=== PATIENT | female | born 1985 | race Caucasian/White ===

== ENCOUNTER → 2016-09-05 | Outpatient (CLI) | payer BC ==
--- NOTE | 2016-09-05 12:56 | REP ---
Clinical: Chest pain and abdominal pain. Comparison: 10/16/2014 . Technique: PA and lateral. Findings: The mediastinum and cardiac silhouette are normal. The lung lee are clear and without acute consolidation, effusion, or pneumothorax. The skeletal structures are intact and normal. Impression: 1. No acute cardiopulmonary process. Signed by Shad Floyd MD 09/05/2016 12:48 P
[2016-09-05 13:14] LABS: ALBUMIN 4.1 GM/DL (3.2-5.2); ALBUMIN/GLOBULIN RATIO 1.21 (1.00-1.93); ALKALINE PHOSPHATASE 46 U/L (45-117); ALT/SGPT 94 U/L (12-78); ANION GAP 7 MEQ/L (8-16); AST/SGOT 53 U/L (15-37); BILIRUBIN,TOTAL 1.4 MG/DL (0.2-1.0); BLOOD UREA NITROGEN 16 MG/DL (7-18); CALCIUM LEVEL 8.8 MG/DL (8.5-10.1); CARBON DIOXIDE LEVEL 32 MEQ/L (21-32); CHLORIDE LEVEL 102 MEQ/L (98-107); CHOLESTEROL LEVEL 226 MG/DL (<200); CREATININE FOR GFR 0.76 MG/DL (0.55-1.02); GLOMERULAR FILTRATION RATE > 60.0 (>60); GLUCOSE, FASTING 105 MG/DL (70-105); POTASSIUM SERUM 4.1 MEQ/L (3.5-5.1); SODIUM LEVEL 141 MEQ/L (136-145); TOTAL PROTEIN 7.5 GM/DL (6.4-8.2); TRIGLYCERIDES LEVEL 236 MG/DL (<150)
[2016-09-05 13:38] LABS: MEAN CORPUSCULAR HEMOGLOBIN 28.7 pg (27.0-33.0); MEAN CORPUSCULAR HGB CONC 33.8 g/dl (32.0-36.5); MEAN CORPUSCULAR VOLUME 84.9 fl (80.0-96.0); RED CELL DISTRIBUTION WIDTH 13.1 % (11.5-14.5); WHITE BLOOD COUNT 6.8 K/mm3 (4.0-10.0)
--- NOTE | 2016-09-05 22:22 | ECGEPIP ---
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
== END ==
LOC: M LAB 12:02
PROVIDERS: ATTEND Family Medicine
DX: R10.9 Unspecified abdominal pain (principal)

== ENCOUNTER → 2016-09-09 | Outpatient (CLI) | payer BC ==
[~2016-09-09] MED LIST: GASTROGRAFIN SOLUTION 30ML (Q9963) As Ordered ONE; ISOVUE-370 76% 100ML VIAL (Q9967) As Ordered ONE
--- NOTE | 2016-09-09 15:58 | REP ---
CT abdomen and pelvis without and with IV contrast. Bowel contrast is used on both phases of the study. There are no comparisons. Prior to IV contrast scanning is performed of the diaphragms to the iliac crests. After IV contrast scan is performed for diaphragms to the pubic symphysis. Rule there is sagittal coronal reformats. The visualized lung lee are unremarkable. The hepatic parenchyma is homogeneous. There is hepato steatosis. The gallbladder, pancreas and spleen are unremarkable. The adrenals, kidneys and abdominal aorta are unremarkable. There is no bowel distension or obstruction. There is no ascites. Pelvis: The appendix has a normal appearance. The uterus is unremarkable. There is a 3.2 cm left adnexal cyst. The right adnexa is unremarkable. The uterus is unremarkable. The bladder is incompletely distended and cannot be further assessed. There is a 4.3 cm soft tissue mass inferiorly in the pelvis posterior lateral to the bladder on the right anterolateral to the lower uterine segment on the right and adjacent to distal sigmoid colon loops. This is sharply circumscribed homogeneous. This could represent a myoma or fibroma arising from the mesentery, bladder, uterus or bowel. Neoplasm cannot be entirely discounted. In the absence of comparison studies documenting stability. Follow-up is recommended. PET CT scan can biopsy may ultimately be required. Impression: There is a 4.3 cm soft tissue mass in the pelvis on the right as described. There are no comparisons. Follow-up is recommended. PET CT scan and biopsy may ultimately be required as discussed in the body of the report. There is a 3.2 cm left adnexal cyst. Hepato steatosis. No ascites or adenopathy. Otherwise, negative CT of the abdomen and pelvis. Signed by Esa Arvizu MD 09/09/2016 03:49 P
== END ==
LOC: M RAD 12:51
PROVIDERS: ATTEND Family Medicine
DX: R10.9 Unspecified abdominal pain (principal); K76.0 Fatty (change of) liver, not elsewhere classified; N83.8 Other noninflammatory disorders of ovary, fallopian tube and broad ligament; R19.03 Right lower quadrant abdominal swelling, mass and lump
CPT/HCPCS: 74178; Q9963; Q9967

== ENCOUNTER → 2016-10-20 | Outpatient (CLI) | payer BC ==
--- NOTE | 2016-10-20 18:57 | REP ---
Clinical: Pelvic abnormality by CT. Technique: Transabdominal pelvic ultrasound followed by transvaginal examination for better evaluation of the endometrium and adnexa with color Doppler evaluation of the ovaries. Comparison: CT dated 09/09/2016. Findings: Retroflexed retroverted uterus measures 6.5 x 3.8 x 4.9 cm. The endometrial complex measures 15.4 mm thickness. No discrete uterine or endometrial abnormalities are appreciated. The bilateral ovaries are normal in appearance and vascularity without torsion. Right ovary measures 2.5 x 2.7 x 4.0 cm; RI equal 0.66. Left ovary measures 2.7 x 2.5 x 3.4 cm; RI equal 0.54. Suspected abnormality on recent CT likely represented normal bilateral adnexa. No pelvic fluid or adnexal mass lesion. Impression: Normal pelvic ultrasound. Signed by Shda Floyd MD 10/20/2016 06:49 P
== END ==
LOC: M RAD 17:46
PROVIDERS: ATTEND Obstetrics & Gynecology
DX: N85.4 Malposition of uterus (principal)

== ENCOUNTER 2017-02-18 06:11 | Emergency (ER) | payer OTHER, BC ==
[~2017-02-18] VITALS: Ht 160 cm; Wt 106.8 kg
[2017-02-18] MEDS ORDERED: PRAV40TA2 (06:22)
[2017-02-18] MEDS ORDERED: LEVO100T5 PO (06:22)
[2017-02-18] MEDS ORDERED: METO-346 PO (06:22)
[2017-02-18] MEDS ORDERED: FURO40TA2 (06:22)
[2017-02-18] MEDS ORDERED: VITA1CAP40 (06:22)
[2017-02-18] MEDS ORDERED: POTA1TAB21 (06:22)
[2017-02-18 07:58] VITALS: BP 146/92
[2017-02-18] MEDS ORDERED: IBUP80TA PO (08:01)
== END 2017-02-18 08:05 | disposition home or self-care (01) ==
LOC: M ED 06:11
DX: S93.402A Sprain of unspecified ligament of left ankle, initial encounter (principal); X50.9XXA Other and unspecified overexertion or strenuous movements or postures, initial encounter; Y92.59 Other trade areas as the place of occurrence of the external cause; Y93.01 Activity, walking, marching and hiking; Y99.0 Civilian activity done for income or pay; F17.210 Nicotine dependence, cigarettes, uncomplicated; I10 Essential (primary) hypertension; E78.00 Pure hypercholesterolemia, unspecified; E03.9 Hypothyroidism, unspecified; F33.9 Major depressive disorder, recurrent, unspecified; Z79.899 Other long term (current) drug therapy; Z98.890 Other specified postprocedural states

== ENCOUNTER → 2017-05-28 | Outpatient (CLI) | payer BC, OTHER ==
[~2017-05-28] MED LIST changes: +FURO40TA2; -GASTROGRAFIN SOLUTION 30ML (Q9963) As Ordered ONE; +IBUP80TA PO; -ISOVUE-370 76% 100ML VIAL (Q9967) As Ordered ONE; +LEVO100T5 PO; +METO-346 PO; +POTA1TAB21; +PRAV40TA2; +VITA1CAP40
[2017-05-28 14:09] LABS: LUTEINIZING HORMONE 7.1 mIU/mL; THYROID PEROXIDASE ANTIBODY < 28.0 U/ML (<60.0)
[2017-05-28 14:10] LABS: FOLLICLE STIMULATING HORMONE 6.8 mIU/mL
[2017-05-28 14:11] LABS: ALBUMIN 3.7 GM/DL (3.2-5.2); ALBUMIN/GLOBULIN RATIO 0.95 (1.00-1.93); ALKALINE PHOSPHATASE 53 U/L (45-117); ALT/SGPT 60 U/L (12-78); ANION GAP 6 MEQ/L (8-16); AST/SGOT 32 U/L (7-37); BLOOD UREA NITROGEN 16 MG/DL (7-18); CALCIUM LEVEL 8.7 MG/DL (8.5-10.1); CARBON DIOXIDE LEVEL 29 MEQ/L (21-32); CHLORIDE LEVEL 104 MEQ/L (98-107); CHOLESTEROL LEVEL 276 MG/DL (<200); CREATININE FOR GFR 0.67 MG/DL (0.55-1.02); FREE T4 1.03 NG/DL (0.76-1.46); GLOMERULAR FILTRATION RATE > 60.0 (>60); GLUCOSE, FASTING 100 MG/DL (70-105); SODIUM LEVEL 139 MEQ/L (136-145); TOTAL PROTEIN 7.6 GM/DL (6.4-8.2); TRIGLYCERIDES LEVEL 308 MG/DL (<150)
== END ==
LOC: M LAB 12:28
PROVIDERS: ATTEND Family Medicine
DX: E03.9 Hypothyroidism, unspecified (principal); E78.5 Hyperlipidemia, unspecified; L68.0 Hirsutism; E66.01 Morbid (severe) obesity due to excess calories

== ENCOUNTER → 2017-08-24 | Outpatient (CLI) | payer BC ==
[2017-08-24 13:36] LABS: ESTIMATED AVERAGE GLUCOSE 120 MG/DL (60-110); HEMOGLOBIN A1c 5.8 %
[2017-08-24 14:06] LABS: FREE T4 0.84 NG/DL (0.76-1.46); THYROID STIMULATING HORMONE 0.917 uIU/ML (0.358-3.740)
== END ==
LOC: M LAB 12:10
DX: E11.9 Type 2 diabetes mellitus without complications (principal); E03.9 Hypothyroidism, unspecified
CPT/HCPCS: 84443

== ENCOUNTER 2017-09-22 10:47 | Emergency (ER) | payer OTHER, BC ==
[2017-09-22] MEDS: IBUPROFEN 600 MG TAB PO (12:02)
== END 2017-09-22 12:13 | disposition home or self-care (01) ==
LOC: M ED 10:47
DX: S46.011A Strain of muscle(s) and tendon(s) of the rotator cuff of right shoulder, initial encounter (principal); X50.9XXA Other and unspecified overexertion or strenuous movements or postures, initial encounter; Y92.89 Other specified places as the place of occurrence of the external cause; Y93.F9 Activity, other caregiving; I10 Essential (primary) hypertension; E03.9 Hypothyroidism, unspecified; E78.00 Pure hypercholesterolemia, unspecified; F17.200 Nicotine dependence, unspecified, uncomplicated; Z79.890 Hormone replacement therapy; Z79.899 Other long term (current) drug therapy; Z79.84 Long term (current) use of oral hypoglycemic drugs
CPT/HCPCS: 99283

== ENCOUNTER → 2017-12-14 | Outpatient (CLI) | payer BC ==
[2017-12-14 10:33] LABS: ALBUMIN 3.8 GM/DL (3.2-5.2); ALBUMIN/GLOBULIN RATIO 1.09 (1.00-1.93); ALKALINE PHOSPHATASE 48 U/L (45-117); ALT/SGPT 29 U/L (12-78); ANION GAP 5 MEQ/L (8-16); AST/SGOT 14 U/L (7-37); BILIRUBIN,TOTAL 0.9 MG/DL (0.2-1.0); BLOOD UREA NITROGEN 12 MG/DL (7-18); CALCIUM LEVEL 8.5 MG/DL (8.5-10.1); CARBON DIOXIDE LEVEL 29 MEQ/L (21-32); CHLORIDE LEVEL 107 MEQ/L (98-107); CREATININE FOR GFR 0.67 MG/DL (0.55-1.30); FREE T4 0.93 NG/DL (0.76-1.46); GLOMERULAR FILTRATION RATE > 60.0 (>60); GLUCOSE, FASTING 93 MG/DL (70-100); POTASSIUM SERUM 4.5 MEQ/L (3.5-5.1); SODIUM LEVEL 141 MEQ/L (136-145); THYROID STIMULATING HORMONE 0.662 uIU/ML (0.358-3.740); TOTAL PROTEIN 7.3 GM/DL (6.4-8.2)
[2017-12-14 11:21] LABS: ESTIMATED AVERAGE GLUCOSE 120 MG/DL (60-110); HEMOGLOBIN A1c 5.8 %
== END ==
LOC: M LAB 09:30
DX: E11.9 Type 2 diabetes mellitus without complications (principal)
CPT/HCPCS: 84443

== ENCOUNTER → 2018-04-14 | Outpatient (CLI) | payer BC ==
[2018-04-14 10:20] LABS: ANION GAP 7 MEQ/L (8-16); BLOOD UREA NITROGEN 12 MG/DL (7-18); CALCIUM LEVEL 8.8 MG/DL (8.5-10.1); CARBON DIOXIDE LEVEL 29 MEQ/L (21-32); CHLORIDE LEVEL 103 MEQ/L (98-107); CREATININE FOR GFR 0.71 MG/DL (0.55-1.30); GLOMERULAR FILTRATION RATE > 60.0 (>60); GLUCOSE, FASTING 102 MG/DL (70-100); POTASSIUM SERUM 4.4 MEQ/L (3.5-5.1); SODIUM LEVEL 139 MEQ/L (136-145)
[2018-04-14 10:26] LABS: MALB URINE SIEMENS 18.6 MG/L; MAU/CREAT RATIO 8.1 MCG/MG (0.0-30.0)
[2018-04-14 10:42] LABS: ESTIMATED AVERAGE GLUCOSE 108 MG/DL (60-110); HEMOGLOBIN A1c 5.4 %
== END ==
LOC: M LAB 09:21
DX: E11.9 Type 2 diabetes mellitus without complications (principal)
CPT/HCPCS: 83036

== ENCOUNTER → 2018-07-23 | Outpatient (CLI) | payer BC ==
[~2018-07-23] MED LIST changes: +FLUO1TAB3; +IBUP-1022 PO; +LABE10TAB; +METF500T4; -VITA1CAP40; +VITA50005
[2018-07-23 08:46] LABS: ALBUMIN 3.9 GM/DL (3.2-5.2); ALT/SGPT 34 U/L (12-78); BILIRUBIN,TOTAL 0.8 MG/DL (0.2-1.0); BLOOD UREA NITROGEN 17 MG/DL (7-18); CALCIUM LEVEL 9.1 MG/DL (8.5-10.1); CARBON DIOXIDE LEVEL 27 MEQ/L (21-32); CHLORIDE LEVEL 101 MEQ/L (98-107); FREE T4 0.99 NG/DL (0.76-1.46); GLOMERULAR FILTRATION RATE > 60.0 (>60); GLUCOSE, FASTING 107 MG/DL (70-100); POTASSIUM SERUM 4.3 MEQ/L (3.5-5.1); SODIUM LEVEL 137 MEQ/L (136-145); TOTAL PROTEIN 7.3 GM/DL (6.4-8.2)
[2018-07-23 09:08] LABS: HEMOGLOBIN A1c 6.1 %
== END ==
LOC: M LAB 07:47
PROVIDERS: ATTEND Physician Assistant
DX: E03.9 Hypothyroidism, unspecified (principal); E11.9 Type 2 diabetes mellitus without complications

== ENCOUNTER → 2018-10-26 | Outpatient (CLI) | payer BC ==
[2018-10-26 14:08] LABS: ALT/SGPT 38 U/L (12-78); BILIRUBIN,TOTAL 0.5 MG/DL (0.2-1.0); BLOOD UREA NITROGEN 15 MG/DL (7-18); CALCIUM LEVEL 9.3 MG/DL (8.5-10.1); CARBON DIOXIDE LEVEL 27 MEQ/L (21-32); CHLORIDE LEVEL 104 MEQ/L (98-107); CREATININE FOR GFR 0.73 MG/DL (0.55-1.30); GLOMERULAR FILTRATION RATE > 60.0 (>60); GLUCOSE, FASTING 99 MG/DL (70-100); POTASSIUM SERUM 4.2 MEQ/L (3.5-5.1); SODIUM LEVEL 138 MEQ/L (136-145); TOTAL PROTEIN 7.2 GM/DL (6.4-8.2)
[2018-10-26 19:16] LABS: HEMOGLOBIN A1c 5.6 %
== END ==
LOC: M WUC 11:47
PROVIDERS: ATTEND Family Medicine
DX: E11.9 Type 2 diabetes mellitus without complications (principal)

== ENCOUNTER → 2018-10-27 | Outpatient (REF) | payer BC ==
[2018-10-27 20:46] LABS: MALB URINE SIEMENS 24.8 MG/L; MAU/CREAT RATIO 7.8 MCG/MG (0.0-30.0)
== END ==
LOC: M LAB REF 19:27
PROVIDERS: ATTEND Family Medicine
DX: E11.9 Type 2 diabetes mellitus without complications (principal)

== ENCOUNTER → 2018-11-16 | Outpatient (CLI) | payer BC ==
[2018-11-16 20:24] LABS: FREE T4 0.89 NG/DL (0.76-1.46); THYROID STIMULATING HORMONE 1.02 uIU/ML (0.358-3.740)
== END ==
LOC: M WUC 15:55
PROVIDERS: ATTEND Physician Assistant
DX: E03.9 Hypothyroidism, unspecified (principal)

== ENCOUNTER → 2019-03-02 | Outpatient (CLI) | payer BC ==
[~2019-03-02] MED LIST changes: +METF-791; -METF500T4
[2019-03-02 14:16] LABS: ALBUMIN 3.7 GM/DL (3.2-5.2); ALT/SGPT 54 U/L (12-78); BILIRUBIN,TOTAL 0.7 MG/DL (0.2-1.0); BLOOD UREA NITROGEN 22 MG/DL (7-18); CALCIUM LEVEL 8.9 MG/DL (8.5-10.1); CARBON DIOXIDE LEVEL 25 MEQ/L (21-32); CHLORIDE LEVEL 103 MEQ/L (98-107); CHOLESTEROL LEVEL 286 MG/DL (<200); CHOLESTEROL RISK RATIO 8.666 (<5); CREATININE FOR GFR 0.81 MG/DL (0.55-1.30); GLOMERULAR FILTRATION RATE > 60.0 (>60); GLUCOSE, FASTING 107 MG/DL (70-100); HDL CHOLESTEROL 33 MG/DL (>40); NON-HDL-C 253 MG/DL; POTASSIUM SERUM 4.3 MEQ/L (3.5-5.1); SODIUM LEVEL 138 MEQ/L (136-145); TOTAL PROTEIN 7.3 GM/DL (6.4-8.2); TRIGLYCERIDES LEVEL 881 MG/DL (<150)
[2019-03-02 14:19] LABS: HEMOGLOBIN A1c 5.7 %
== END ==
LOC: M WUC 09:23
PROVIDERS: ATTEND Physician Assistant
DX: E11.9 Type 2 diabetes mellitus without complications (principal)

== ENCOUNTER → 2019-04-27 | Outpatient (CLI) | payer BC ==
--- NOTE | 2019-04-28 09:39 | REP ---
Seven views lumbar spine: 04/27/2019. Indication: Low back pain. Comparison: New none. Findings: There is no acute fracture, subluxation or dislocation. There is no instability on the flexion/extension views. Disc space height is relatively well maintained. No lytic or blastic lesions are detected. Impression: No acute osseous lumbar spine injury. Electronically Signed by Quinn Blas DO 04/28/2019 09:31 A
== END ==
LOC: M WUC 18:31
PROVIDERS: ATTEND Family Medicine
DX: M54.41 Lumbago with sciatica, right side (principal)

== ENCOUNTER → 2019-06-07 | Outpatient (CLI) | payer BC ==
[2019-06-07 10:24] LABS: ALBUMIN 3.7 GM/DL (3.2-5.2); ALT/SGPT 71 U/L (12-78); BILIRUBIN,TOTAL 0.6 MG/DL (0.2-1.0); BLOOD UREA NITROGEN 15 MG/DL (7-18); CALCIUM LEVEL 8.7 MG/DL (8.5-10.1); CARBON DIOXIDE LEVEL 27 MEQ/L (21-32); CHLORIDE LEVEL 104 MEQ/L (98-107); CHOLESTEROL LEVEL 301 MG/DL (<200); CHOLESTEROL RISK RATIO 7.717 (<5); CREATININE FOR GFR 0.77 MG/DL (0.55-1.30); GLOMERULAR FILTRATION RATE > 60.0 (>60); GLUCOSE, FASTING 100 MG/DL (70-100); HDL CHOLESTEROL 39 MG/DL (>40); NON-HDL-C 262 MG/DL; POTASSIUM SERUM 4.7 MEQ/L (3.5-5.1); SODIUM LEVEL 139 MEQ/L (136-145); TOTAL PROTEIN 7.2 GM/DL (6.4-8.2); TRIGLYCERIDES LEVEL 419 MG/DL (<150)
[2019-06-07 10:41] LABS: MALB URINE SIEMENS 33.9 MG/L
[2019-06-07 11:07] LABS: HEMOGLOBIN A1c 6.4 %
== END ==
LOC: M WUC 08:09
PROVIDERS: ATTEND Family Medicine
DX: E78.2 Mixed hyperlipidemia (principal); E11.9 Type 2 diabetes mellitus without complications

== ENCOUNTER → 2019-11-05 | Outpatient (CLI) | payer BC ==
[~2019-11-05] MED LIST changes: -METF-791; +METF-838
[2019-11-06 09:11] LABS: BLOOD UREA NITROGEN 14 MG/DL (7-18); CALCIUM LEVEL 8.7 MG/DL (8.5-10.1); CARBON DIOXIDE LEVEL 29 MEQ/L (21-32); CHLORIDE LEVEL 107 MEQ/L (98-107); CHOLESTEROL LEVEL 286 MG/DL (<200); CHOLESTEROL RISK RATIO 8.411 (<5); FREE T4 1.19 NG/DL (0.76-1.46); GLOMERULAR FILTRATION RATE > 60.0 (>60); GLUCOSE, FASTING 113 MG/DL (70-100); HDL CHOLESTEROL 34 MG/DL (>40); NON-HDL-C 252 MG/DL; POTASSIUM SERUM 4.9 MEQ/L (3.5-5.1); SODIUM LEVEL 141 MEQ/L (136-145); TRIGLYCERIDES LEVEL 558 MG/DL (<150)
[2019-11-06 09:45] LABS: HEMOGLOBIN A1c 6.4 %
== END ==
LOC: M WUC 10:25
PROVIDERS: ATTEND Physician Assistant

== ENCOUNTER → 2020-01-23 | Outpatient (REF) | payer BC ==
[2020-03-09 11:35] LABS: BASO % 0.3 % (0.0-1.0); EOS # 0.4 10^3/uL (0.0-0.5); EOS % 5.7 % (0.0-3.0); HEMATOCRIT 39.4 % (36.0-47.0); HEMOGLOBIN 12.7 g/dl (12.0-15.5); LYMPH % 44.1 % (24.0-44.0); MEAN CORPUSCULAR HEMOGLOBIN 28.5 pg (27.0-33.0); MEAN CORPUSCULAR HGB CONC 32.2 g/dl (32.0-36.5); MEAN CORPUSCULAR VOLUME 88.5 fl (80.0-96.0); MONO # 0.5 10^3/uL (0.0-0.8); MONO % 7.3 % (0.0-5.0); NEUTROPHILS # 2.9 10^3/uL (1.5-8.5); NEUTROPHILS % 42.2 % (36.0-66.0); PLATELET COUNT, AUTOMATED 244 10^3/uL (150-450); RED BLOOD COUNT 4.45 10^6/uL (4.00-5.40); WHITE BLOOD COUNT 6.9 10^3/uL (4.0-10.0)
[2020-03-19 21:56] LABS: HEMOGLOBIN A1c 6.1 %
[2020-03-19 23:31] LABS: ALBUMIN 3.8 GM/DL (3.2-5.2); ALT/SGPT 109 U/L (12-78); BILIRUBIN,TOTAL 0.7 MG/DL (0.2-1.0); BLOOD UREA NITROGEN 15 MG/DL (7-18); CALCIUM LEVEL 9.2 MG/DL (8.5-10.1); CARBON DIOXIDE LEVEL 28 MEQ/L (21-32); CHLORIDE LEVEL 104 MEQ/L (98-107); FERRITIN 126 NG/ML (8-252); GLOMERULAR FILTRATION RATE > 60.0 (>60); GLUCOSE, FASTING 128 MG/DL (70-100); IRON (FE) 79 UG/DL (50-170); MAGNESIUM LEVEL 1.8 MG/DL (1.8-2.4); PHOSPHORUS LEVEL 3.7 MG/DL (2.5-4.9); POTASSIUM SERUM 3.8 MEQ/L (3.5-5.1); SODIUM LEVEL 137 MEQ/L (136-145); TOTAL 25(OH) VITAMIN D 20.2 NG/ML (30.0-100.0); TOTAL IRON BINDING CAPACITY 343 UG/DL (250-450); TOTAL PROTEIN 7.5 GM/DL (6.4-8.2); VITAMIN B12 LEVEL 320 PG/ML (247-911)
== END ==
LOC: M LABWUC 15:25
PROVIDERS: ATTEND Physician Assistant
DX: K91.2 Postsurgical malabsorption, not elsewhere classified (principal); Z98.84 Bariatric surgery status; E55.9 Vitamin D deficiency, unspecified; Z86.39 Personal history of other endocrine, nutritional and metabolic disease

== ENCOUNTER → 2020-02-04 | Outpatient (CLI) | payer BC ==
[2020-02-04 12:30] LABS: MALB URINE SIEMENS 15.2 MG/L; MAU/CREAT RATIO 14.2 MCG/MG (0.0-30.0)
[2020-02-04 12:39] LABS: ALBUMIN 3.9 GM/DL (3.2-5.2); ALT/SGPT 116 U/L (12-78); BILIRUBIN,TOTAL 0.8 MG/DL (0.2-1.0); BLOOD UREA NITROGEN 14 MG/DL (7-18); CALCIUM LEVEL 9.4 MG/DL (8.5-10.1); CARBON DIOXIDE LEVEL 32 MEQ/L (21-32); CHLORIDE LEVEL 103 MEQ/L (98-107); CHOLESTEROL LEVEL 314 MG/DL (<200); CHOLESTEROL RISK RATIO 8.263 (<5); FREE T4 0.97 NG/DL (0.76-1.46); GLOMERULAR FILTRATION RATE > 60.0 (>60); GLUCOSE, FASTING 103 MG/DL (70-100); HDL CHOLESTEROL 38 MG/DL (>40); NON-HDL-C 276 MG/DL; POTASSIUM SERUM 5.2 MEQ/L (3.5-5.1); SODIUM LEVEL 139 MEQ/L (136-145); TOTAL PROTEIN 7.9 GM/DL (6.4-8.2); TRIGLYCERIDES LEVEL 440 MG/DL (<150)
== END ==
LOC: M WUC 09:11
PROVIDERS: ATTEND Family Medicine
DX: E11.9 Type 2 diabetes mellitus without complications (principal); E03.9 Hypothyroidism, unspecified; E78.2 Mixed hyperlipidemia

== ENCOUNTER → 2020-06-13 | Outpatient (CLI) | payer BC ==
[~2020-06-13] MED LIST changes: +LABE100T4; -LABE10TAB
[2020-06-13 10:30] LABS: BASO % 0.3 % (0.0-1.0); EOS # 0.2 10^3/uL (0.0-0.5); EOS % 3.9 % (0.0-3.0); HEMATOCRIT 38.9 % (36.0-47.0); HEMOGLOBIN 12.5 g/dl (12.0-15.5); LYMPH # 1.8 10^3/uL (1.5-5.0); MEAN CORPUSCULAR HGB CONC 32.1 g/dl (32.0-36.5); MONO # 0.4 10^3/uL (0.0-0.8); MONO % 9.1 % (0.0-5.0); NEUTROPHILS # 1.5 10^3/uL (1.5-8.5); NEUTROPHILS % 39.7 % (36.0-66.0); PLATELET COUNT, AUTOMATED 208 10^3/uL (150-450); RED BLOOD COUNT 4.47 10^6/uL (4.00-5.40); WHITE BLOOD COUNT 3.8 10^3/uL (4.0-10.0)
[2020-06-13 10:57] LABS: ALT/SGPT 72 U/L (12-78); BILIRUBIN,TOTAL 0.8 MG/DL (0.2-1.0); BLOOD UREA NITROGEN 15 MG/DL (7-18); CALCIUM LEVEL 9.2 MG/DL (8.5-10.1); CARBON DIOXIDE LEVEL 27 MEQ/L (21-32); CHLORIDE LEVEL 107 MEQ/L (98-107); CREATININE FOR GFR 0.85 MG/DL (0.55-1.30); FERRITIN 174 NG/ML (8-252); GLOMERULAR FILTRATION RATE > 60.0 (>60); GLUCOSE, FASTING 115 MG/DL (70-100); IRON (FE) 72 UG/DL (50-170); MAGNESIUM LEVEL 2.2 MG/DL (1.8-2.4); PERCENT SATURATION 23.5 % (13.2-45.0); PHOSPHORUS LEVEL 4.2 MG/DL (2.5-4.9); POTASSIUM SERUM 3.8 MEQ/L (3.5-5.1); SODIUM LEVEL 140 MEQ/L (136-145); TOTAL IRON BINDING CAPACITY 307 UG/DL (250-450); TOTAL PROTEIN 7.1 GM/DL (6.4-8.2)
[2020-06-13 10:59] LABS: HEMOGLOBIN A1c 5.5 %
[2020-06-13 11:05] LABS: TOTAL 25(OH) VITAMIN D 26.8 NG/ML (30.0-100.0); VITAMIN B12 LEVEL 808 PG/ML (247-911)
[2020-06-13 11:06] LABS: FOLATE > 24.0 NG/ML (>5.4)
== END ==
LOC: M WUC 08:10
PROVIDERS: ATTEND Surgery
DX: K91.2 Postsurgical malabsorption, not elsewhere classified (principal); E55.9 Vitamin D deficiency, unspecified; Z98.84 Bariatric surgery status

== ENCOUNTER → 2020-06-20 | Outpatient (CLI) | payer BC ==
[2020-06-20 12:23] LABS: ALBUMIN 3.7 GM/DL (3.2-5.2); ALT/SGPT 60 U/L (12-78); BILIRUBIN,TOTAL 0.9 MG/DL (0.2-1.0); BLOOD UREA NITROGEN 9 MG/DL (7-18); CALCIUM LEVEL 9.6 MG/DL (8.5-10.1); CARBON DIOXIDE LEVEL 27 MEQ/L (21-32); CHLORIDE LEVEL 107 MEQ/L (98-107); CREATININE FOR GFR 0.79 MG/DL (0.55-1.30); GLOMERULAR FILTRATION RATE > 60.0 (>60); GLUCOSE, FASTING 99 MG/DL (70-100); POTASSIUM SERUM 4.4 MEQ/L (3.5-5.1); SODIUM LEVEL 139 MEQ/L (136-145)
[2020-06-20 13:25] LABS: HEMOGLOBIN A1c 5.6 %
== END ==
LOC: M WUC 09:06
PROVIDERS: ATTEND Physician Assistant
DX: E11.9 Type 2 diabetes mellitus without complications (principal)

== ENCOUNTER → 2020-09-05 | Outpatient (CLI) | payer BC ==
[2020-09-05 09:54] LABS: BASO % 0.3 % (0.0-1.0); EOS # 0.2 10^3/uL (0.0-0.5); EOS % 2.3 % (0.0-3.0); HEMATOCRIT 38.9 % (36.0-47.0); HEMOGLOBIN 12.5 g/dl (12.0-15.5); LYMPH # 2.8 10^3/uL (1.5-5.0); LYMPH % 42.7 % (24.0-44.0); MEAN CORPUSCULAR HGB CONC 32.1 g/dl (32.0-36.5); MEAN CORPUSCULAR VOLUME 87.2 fl (80.0-96.0); MONO # 0.5 10^3/uL (0.0-0.8); MONO % 7.4 % (2.0-8.0); NEUTROPHILS # 3.1 10^3/uL (1.5-8.5); NEUTROPHILS % 47.1 % (36.0-66.0); PLATELET COUNT, AUTOMATED 294 10^3/uL (150-450); RED BLOOD COUNT 4.46 10^6/uL (4.00-5.40); WHITE BLOOD COUNT 6.5 10^3/uL (4.0-10.0)
[2020-09-05 10:42] LABS: ALBUMIN 3.8 GM/DL (3.2-5.2); ALT/SGPT 48 U/L (12-78); BILIRUBIN,TOTAL 0.7 MG/DL (0.2-1.0); BLOOD UREA NITROGEN 12 MG/DL (7-18); CALCIUM LEVEL 9.7 MG/DL (8.5-10.1); CARBON DIOXIDE LEVEL 26 MEQ/L (21-32); CHLORIDE LEVEL 107 MEQ/L (98-107); CHOLESTEROL LEVEL 251 MG/DL (<200); CHOLESTEROL RISK RATIO 5.456 (<5); CREATININE FOR GFR 0.81 MG/DL (0.55-1.30); FERRITIN 132 NG/ML (8-252); FREE T4 0.86 NG/DL (0.76-1.46); GLOMERULAR FILTRATION RATE > 60.0 (>60); GLUCOSE, FASTING 98 MG/DL (70-100); HDL CHOLESTEROL 46 MG/DL (>40); IRON (FE) 89 UG/DL (50-170); LDL CHOLESTEROL 156 MG/DL (<100); NON-HDL-C 205 MG/DL; PERCENT SATURATION 24.9 % (13.2-45.0); POTASSIUM SERUM 4.8 MEQ/L (3.5-5.1); SODIUM LEVEL 140 MEQ/L (136-145); TOTAL 25(OH) VITAMIN D 28.6 NG/ML (30.0-100.0); TOTAL IRON BINDING CAPACITY 358 UG/DL (250-450); TOTAL PROTEIN 7.3 GM/DL (6.4-8.2); TRIGLYCERIDES LEVEL 247 MG/DL (<150); VITAMIN B12 LEVEL 351 PG/ML (247-911)
[2020-09-05 10:44] LABS: HEMOGLOBIN A1c 5.7 %
== END ==
LOC: M PLALAB 08:05
PROVIDERS: ATTEND Family Medicine
DX: E78.2 Mixed hyperlipidemia (principal); E11.9 Type 2 diabetes mellitus without complications; E03.9 Hypothyroidism, unspecified; Z98.84 Bariatric surgery status

== ENCOUNTER → 2020-09-28 | Outpatient (CLI) | payer BC ==
[~2020-09-28] MED LIST changes: +BIOT10009 PO; +ESCITALOPRAM; +ETON1VAG PV; -LABE100T4; +LABE100T4 PO; +LEXA1TAB2 PO; +OMEP-221 PO; +VITA-172 PO
--- NOTE | 2020-09-28 15:36 | REP ---
INDICATION: GENERALIZED ABDOMINAL PAIN COMPARISON: None. TECHNIQUE: Upright view of the chest with supine and upright views of the abdomen and pelvis. FINDINGS: Frontal upright view of the chest demonstrates no acute cardiopulmonary process or free air below the diaphragm to suspect pneumoperitoneum. Supine and upright views of the abdomen and pelvis demonstrate nonspecific bowel gas pattern without obstruction or perforation. No organomegaly. No abnormal calcifications. Skeletal structures normal for age. IMPRESSION: Nonspecific bowel gas pattern. <Electronically signed by Shad Floyd > 09/28/20 [id number]
== END ==
LOC: M WUC 14:36
PROVIDERS: ATTEND Physician Assistant
DX: R10.84 Generalized abdominal pain (principal)

== ENCOUNTER 2020-09-30 14:05 | Inpatient (IN) | payer BC ==
[~2020-09-30] VITALS: Ht 160 cm; Wt 85.3 kg
[~2020-09-30 14:05] MED LIST changes: -BIOT10009 PO; -ESCITALOPRAM; -ETON1VAG PV; -LEXA1TAB2 PO; -OMEP-221 PO; -VITA-172 PO
[2020-09-30] MEDS ORDERED: OMEP-221 PO (14:13)
[2020-09-30] MEDS ORDERED: ESCITALOPRAM (14:13)
[2020-09-30] MEDS ORDERED: ETON1VAG PV (14:14)
[2020-09-30 14:43] LABS: BASO % 0.1 % (0.0-1.0); EOS # 0.1 10^3/uL (0.0-0.5); EOS % 0.3 % (0.0-3.0); HEMATOCRIT 38.5 % (36.0-47.0); HEMOGLOBIN 12.6 g/dl (12.0-15.5); LYMPH # 2.1 10^3/uL (1.5-5.0); LYMPH % 12.6 % (24.0-44.0); MEAN CORPUSCULAR HEMOGLOBIN 28.1 pg (27.0-33.0); MEAN CORPUSCULAR HGB CONC 32.7 g/dl (32.0-36.5); MEAN CORPUSCULAR VOLUME 85.9 fl (80.0-96.0); MONO # 1.6 10^3/uL (0.0-0.8); MONO % 9.4 % (2.0-8.0); NEUTROPHILS # 12.8 10^3/uL (1.5-8.5); PLATELET COUNT, AUTOMATED 294 10^3/uL (150-450); RED BLOOD COUNT 4.48 10^6/uL (4.00-5.40)
[2020-09-30 15:06] LABS: HCG, SERUM QUALITATIVE NEGATIVE (NEGATIVE)
[2020-09-30 15:07] LABS: ALBUMIN 3.5 GM/DL (3.2-5.2); ALT/SGPT 56 U/L (12-78); BILIRUBIN,DIRECT 0.6 MG/DL (0.0-0.2); BILIRUBIN,TOTAL 2.3 MG/DL (0.2-1.0); BLOOD UREA NITROGEN 9 MG/DL (7-18); CALCIUM LEVEL 9.6 MG/DL (8.5-10.1); CARBON DIOXIDE LEVEL 27 MEQ/L (21-32); CHLORIDE LEVEL 103 MEQ/L (98-107); CREATININE FOR GFR 0.76 MG/DL (0.55-1.30); GLOMERULAR FILTRATION RATE > 60.0 (>60); GLUCOSE, FASTING 121 MG/DL (70-100); LIPASE 92 U/L (73-393); POTASSIUM SERUM 4.2 MEQ/L (3.5-5.1); SODIUM LEVEL 136 MEQ/L (136-145); TOTAL PROTEIN 7.5 GM/DL (6.4-8.2)
[2020-09-30 15:15] LABS: WHITE BLOOD COUNT 16.6 10^3/uL (4.0-10.0)
[2020-09-30] MEDS ORDERED: ISOVUE-370 76% 100ML VIAL As Ordered ONE (15:18)
[2020-09-30] MEDS ORDERED: KETOROLAC 30 MG/ML 1ML VIAL IV ONE (15:20)
[2020-09-30] MEDS ORDERED: PIPERACILLIN/TAZOBACTAM SOD 3.375 GM in D5W MINI-BAG PLUS 50 ML IV ONE (15:40)
--- NOTE | 2020-09-30 15:46 | REP ---
INDICATION: RLQ pain x 3 days, worse with moving. COMPARISON: 09/09/2016 TECHNIQUE: Axial contrast-enhanced images from the lung bases to the pubic symphysis using 100 cc Isovue 370 intravenous contrast material. Coronal and sagittal reformations. This CT examination was performed using the following dose reduction techniques: Automated exposure control, adjustment of mA and/or kv according to the patient's size, and the use of iterative reconstruction technique. FINDINGS: Right lower quadrant inflammatory changes with is enhancing dilated appendix including appendicular and adjacent foci of extraluminal gas most compatible with ruptured appendicitis. Secondary mucosal thickening and inflammatory changes to the terminal ileum and cecal base are noted with adjacent reactive lymph nodes. No drainable collection/abscess. No evidence for bowel obstruction. Remainder of the small and large bowel is unremarkable. Liver, spleen, pancreas, gallbladder, bilateral adrenal glands and kidneys are normal. Evidence for prior gastric bypass surgery noted. Pelvis demonstrates normal bladder and age-appropriate uterus/adnexa. No ascites. No retroperitoneal adenopathy. Abdominal aorta and vasculature are normal. Musculoskeletal structures are intact. Lung bases are clear. IMPRESSION: Findings consistent with ruptured appendicitis with small foci of contained extraluminal gas and surrounding inflammatory changes. No drainable collection/abscess or bowel obstruction. <Electronically signed by Shad Floyd > 09/30/20 0108
[2020-09-30] MEDS ORDERED: BIOT10009 PO (16:12)
[2020-09-30] MEDS ORDERED: LEXA1TAB2 PO (16:12)
[2020-09-30] MEDS ORDERED: VITA-172 PO (16:12)
[2020-09-30 16:24] LABS: RSV AMPLIFICATION NEGATIVE (NEGATIVE)
[2020-09-30] MEDS ORDERED: MORPHINE 2 MG/ML 1ML VIAL (J2270) IV PRN ×2 (17:00)
[2020-09-30] MEDS ORDERED: ONDANSETRON 4MG/2ML VIAL IV PRN (17:00)
[2020-09-30] MEDS: NS 1,000 ML IV SCH (17:55)
[2020-09-30 18:40] VITALS: BP 100/70
[2020-09-30] MEDS ORDERED: PILL CUTTER 1 EACH XX PRN (19:00)
[2020-09-30] MEDS: CIPROFLOXACIN 400 MG in IV 1 EA IV SCH (19:05)
[2020-09-30] MEDS: ESCITALOPRAM OXALATE 10 MG TAB (LEXAPRO) PO SCH (20:25)
[2020-09-30] MEDS: metroNIDAZOLE 500 MG in IV 1 EA IV SCH (20:25)
[2020-09-30] MEDS: LABETALOL 100MG TAB PO SCH (21:54)
[2020-09-30 22:00] VITALS: BP 113/63
--- NOTE | 2020-09-30 22:56 | HPE ---
HISTORY AND PHYSICAL DATE OF ADMISSION: 09/30/2020 HISTORY OF PRESENT ILLNESS: The patient is a 35-year-old female who developed abdominal pain approximately three days prior to admission, and on morning she was having some pain/discomfort in the right lower quadrant. Later on that day, she had more severe pain and it was quite problematic for her and noticed that this really was not getting any better over the last several days. She initially went to Urgent Care on Thursday and no specific diagnosis was given to her reportedly and she continued with this pain over the ensuing two days and returns to the Emergency Room for a CAT scan evaluation today and indeed shows evidence of an elevated white count of 16.6 and evidence of a localized perforation of the appendix. She states that she has been afebrile at home and has not had any bowel movements, still has "gas" that has been problematic for her. Overall she states that her pain is not any worse today than it was yesterday and may actually be slightly better since being in the Emergency Room even before pain medication. PAST MEDICAL/SURGICAL HISTORY: Significant for history of gastric bypass, history of morbid obesity, history of left knee surgery with arthroscopy, history of ACL repair (right knee), history of hypertension, history of hyperlipidemia, history of hypercholesterolemia, history of hypothyroidism, history of anxiety. MEDICATIONS: Include Synthroid, Labetalol, Omeprazole, Vitamin B12, Biotin. PHYSICAL EXAMINATION: GENERAL: Reveals a 35-year-old female, looks stated age. HEENT: Unremarkable. Neck supple without adenopathy. LUNGS: Clear to auscultation, without crackles, wheezes or rhonchi. HEART: Regular without murmur. ABDOMEN: Softly distended, nontender except on the right hand side of her abdomen. Left side is not tender. The epigastric area is not tender, even the suprapubic area is not tender, although guarding is appreciated on the right hand side of the abdomen in the right lower quadrant. IMPRESSION/PLAN: Patient has evidence of perforated appendicitis and most likely perforated on given the severity of the pain she describes and given that this appears to be a retrocecal appendix, probably presented a little bit late into its course/when it was perforated. In any case, patient has been stable relatively speaking clinically she states over the last 24 hours and thus I do feel that it is reasonable to attempt nonoperative method/antibiotic treatment, n.p.o. , I.V. fluids for this individual. We have discussed options of operative intervention versus antibiotic therapy. She understands that despite antibiotic therapy, we may be able to avoid developing an abscess, but may indeed develop an abscess which may need drainage or possibly progress to increasing infectious process that may need more urgent operative intervention. At this point given her current presentation, I feel that it is very reasonable to proceed with this avenue. She also understands there maybe a higher risk of typical complications of operative intervention at this time with postoperative infection/abscesses, bleeding, need for bowel resection, bowel injury, etc. given the current three day history of probable perforated appendicitis. At this point, we will get some follow-up labs in the morning, start I.V. antibiotics and make her n.p.o.
[2020-09-30] MEDS: KETOROLAC 30 MG/ML 1ML VIAL IV SCH (23:58)
[2020-10-01 02:00] VITALS: BP 119/67
[2020-10-01] MEDS: CIPROFLOXACIN 400 MG in IV 1 EA IV SCH ×2 (05:27→18:17)
[2020-10-01] MEDS: NS 1,000 ML IV SCH ×3 (05:27→16:28)
[2020-10-01] MEDS: LEVOTHYROXINE 100MCG TABLET (0.1MG) PO SCH (06:02)
[2020-10-01] MEDS: KETOROLAC 30 MG/ML 1ML VIAL IV SCH ×3 (06:02→18:20)
[2020-10-01 06:12] VITALS: BP 92/57
[2020-10-01] MEDS: metroNIDAZOLE 500 MG in IV 1 EA IV SCH ×5 (06:51→19:14)
[2020-10-01 07:07] LABS: HEMATOCRIT 31.5 % (36.0-47.0); MEAN CORPUSCULAR HEMOGLOBIN 27.9 pg (27.0-33.0); MEAN CORPUSCULAR HGB CONC 32.1 g/dl (32.0-36.5); PLATELET COUNT, AUTOMATED 222 10^3/uL (150-450); RED BLOOD COUNT 3.62 10^6/uL (4.00-5.40); WHITE BLOOD COUNT 10.6 10^3/uL (4.0-10.0)
[2020-10-01 07:20] LABS: BLOOD UREA NITROGEN 12 MG/DL (7-18); CARBON DIOXIDE LEVEL 27 MEQ/L (21-32); CHLORIDE LEVEL 106 MEQ/L (98-107); CREATININE FOR GFR 0.62 MG/DL (0.55-1.30); GLOMERULAR FILTRATION RATE > 60.0 (>60); GLUCOSE, FASTING 99 MG/DL (70-100); POTASSIUM SERUM 3.6 MEQ/L (3.5-5.1); SODIUM LEVEL 141 MEQ/L (136-145)
[2020-10-01 07:26] LABS: HEMOGLOBIN 10.1 g/dl (12.0-15.5)
[2020-10-01] MEDS ORDERED: CYANOCOBALAMIN 500 MCG TAB PO SCH (09:00)
[2020-10-01] MEDS: PANTOPRAZOLE 40MG VIAL (C9113 PER 1) IV SCH (09:29)
[2020-10-01 10:11] VITALS: BP 102/60
[2020-10-01] MEDS: CYANOCOBALAMIN 1,000MCG/ML VIAL (J3420) IM SCH (11:18)
[2020-10-01 14:00] VITALS: BP 114/67
--- NOTE | 2020-10-01 15:37 | IPNPDOC ---
Text Note Date of Service The patient was seen on 10/01/20. NOTE Gen. surgery. Dr. Daniels The patient is a 35-year-old female admitted with perforated appendicitis. This morning, the patient is sitting on the side of the bed and reports im provement in her pain. She denies any nausea or vomiting. Denies diarrhea, no bowel movement since admission. Tmax 99.9 VSS General. Awake and alert, sitting on the side of the bed, appears in no acute distress. MMM Lungs are clear to auscultation S1-S2 regular rate and rhythm Abdomen is soft, mildly distended, tenderness with palpation in the right lower quadrant, patient has some guarding on the right. WBC 10.6, decreased from 16.6 on admission. Hgb 10.1, platelets 222 Assessment/plan Perforated appendicitis. Patient is reviewed and examined as per Dr. Daniels. NPO UAT661 mL per hour Continue IV Cipro/Flagyl. Continue to closely monitor response to antibiotic therapy. Continue to monitor. VS,Fishbone, I+O VS, Fishbone, I+O Laboratory Tests 10/01/20 06:04 Vital Signs Date Time Temp Pulse Resp B/P (MAP) Pulse Ox O2 Delivery O2 Flow Rate FiO2 10/01/20 14:00 97.4 68 21 114/67 (83) 97 Room Air I&O- Last 24 Hours up to 6 AM 10/01/20 06:00 Intake Total 375 ml Balance 375 ml Shereen Iraheta Oct 01, 2020 15:37
[2020-10-01] MEDS: ACETAMINOPHEN TAB 650MG DOSE (2X325MG) PO PRN (16:29)
[2020-10-01] MEDS: ESCITALOPRAM OXALATE 10 MG TAB (LEXAPRO) PO SCH (20:46)
[2020-10-01 20:48] VITALS: BP 103/60
[2020-10-01] MEDS: LABETALOL 100MG TAB PO SCH (20:56)
[2020-10-01 22:00] VITALS: BP 100/60
[2020-10-02] MEDS: KETOROLAC 30 MG/ML 1ML VIAL IV SCH ×4 (00:53→17:37)
[2020-10-02] MEDS: NS 1,000 ML IV SCH ×3 (00:53→17:38)
[2020-10-02] MEDS: metroNIDAZOLE 500 MG in IV 1 EA IV SCH ×4 (00:53→18:33)
[2020-10-02 02:00] VITALS: BP 100/60
[2020-10-02 06:00] VITALS: BP_SYST 104; BP_SYST 149; BP_DIAS 64; BP_DIAS 80
[2020-10-02] MEDS: CIPROFLOXACIN 400 MG in IV 1 EA IV SCH ×2 (06:32→17:38)
[2020-10-02] MEDS: LEVOTHYROXINE 100MCG TABLET (0.1MG) PO SCH (06:33)
[2020-10-02 06:39] LABS: HEMATOCRIT 30.7 % (36.0-47.0); HEMOGLOBIN 9.8 g/dl (12.0-15.5); MEAN CORPUSCULAR HEMOGLOBIN 27.8 pg (27.0-33.0); MEAN CORPUSCULAR HGB CONC 31.9 g/dl (32.0-36.5); MEAN CORPUSCULAR VOLUME 87.2 fl (80.0-96.0); PLATELET COUNT, AUTOMATED 247 10^3/uL (150-450); RED BLOOD COUNT 3.52 10^6/uL (4.00-5.40); WHITE BLOOD COUNT 8.1 10^3/uL (4.0-10.0)
[2020-10-02 06:56] LABS: BLOOD UREA NITROGEN 18 MG/DL (7-18); CALCIUM LEVEL 8.1 MG/DL (8.5-10.1); CARBON DIOXIDE LEVEL 23 MEQ/L (21-32); CHLORIDE LEVEL 111 MEQ/L (98-107); CREATININE FOR GFR 0.53 MG/DL (0.55-1.30); GLOMERULAR FILTRATION RATE > 60.0 (>60); GLUCOSE, FASTING 78 MG/DL (70-100); SODIUM LEVEL 143 MEQ/L (136-145)
[2020-10-02] MEDS: CYANOCOBALAMIN 1,000MCG/ML VIAL (J3420) IM SCH (08:23)
[2020-10-02] MEDS: PANTOPRAZOLE 40MG VIAL (C9113 PER 1) IV SCH (08:23)
--- NOTE | 2020-10-02 09:10 | IPNPDOC ---
Text Note Date of Service The patient was seen on 10/02/20. NOTE Gen. surgery. Dr. Daniels The patient is a 35-year-old female admitted with perforated appendicitis. This morning, the patient is sitting on the side of the bed, she states she has continued to note improvement in her pain. She denies any nausea or vomiting. States her urine is dark in color. Afebrile VSS General. Awake and alert, sitting on the side of the bed, appears in no acute distress. MMM Lungs are clear to auscultation S1-S2 regular rate and rhythm Abdomen is soft, mildly distended, still with some tenderness with palpation in the right lower quadrant, no guarding today. WBC 8.1, decreased from 16.6 on admission. Assessment/plan Perforated appendicitis. Patient is reviewed and examined as per Dr. Daniels this morning. Trial of clear liquids BUT108 mL per hour Continue IV Cipro/Flagyl. Check UA with reflex culture Continue to closely monitor response to antibiotic therapy. Continue to monitor. VS,Fishbone, I+O VS, Fishbone, I+O Laboratory Tests 10/02/20 06:11 Vital Signs Date Time Temp Pulse Resp B/P (MAP) Pulse Ox O2 Delivery O2 Flow Rate FiO2 10/02/20 06:00 98.0 71 18 104/64 (77) 97 Room Air I&O- Last 24 Hours up to 6 AM 10/02/20 05:59 Intake Total 1300 ml Output Total 700 ml Balance 600 ml Shereen Iraheta Oct 02, 2020 09:10
[2020-10-02 10:00] VITALS: BP 106/67
[2020-10-02 14:00] VITALS: BP 121/86
[2020-10-02] MEDS: ACETAMINOPHEN TAB 650MG DOSE (2X325MG) PO PRN ×2 (16:16→21:30)
[2020-10-02] MEDS ORDERED: DOCUSATE SODIUM 100MG CAPSULE PO ONE (17:35)
[2020-10-02 19:00] VITALS: BP 131/86
[2020-10-02 21:25] VITALS: BP 121/71
[2020-10-02] MEDS: ESCITALOPRAM OXALATE 10 MG TAB (LEXAPRO) PO SCH (21:27)
[2020-10-02] MEDS: LABETALOL 100MG TAB PO SCH (21:27)
[2020-10-03] MEDS: KETOROLAC 30 MG/ML 1ML VIAL IV SCH ×4 (00:44→17:57)
[2020-10-03] MEDS: NS 1,000 ML IV SCH (00:45)
[2020-10-03] MEDS: metroNIDAZOLE 500 MG in IV 1 EA IV SCH ×5 (00:45→23:41)
[2020-10-03] MEDS ORDERED: CIPROFLOXACIN/D5W 400 MG/200 ML BAG (J0744) As Ordered ONE (05:02)
[2020-10-03] MEDS ORDERED: metroNIDAZOLE/NACL 500MG(5MG/ML) 100ML BAG (S0030) As Ordered ONE (05:02)
[2020-10-03] MEDS ORDERED: LEVOTHYROXINE 100MCG TABLET (0.1MG) As Ordered ONE (05:03)
[2020-10-03] MEDS: CIPROFLOXACIN 400 MG in IV 1 EA IV SCH ×2 (05:08→17:56)
[2020-10-03 06:15] LABS: HEMATOCRIT 29.9 % (36.0-47.0); HEMOGLOBIN 9.6 g/dl (12.0-15.5); MEAN CORPUSCULAR HEMOGLOBIN 27.8 pg (27.0-33.0); MEAN CORPUSCULAR HGB CONC 32.1 g/dl (32.0-36.5); MEAN CORPUSCULAR VOLUME 86.7 fl (80.0-96.0); PLATELET COUNT, AUTOMATED 286 10^3/uL (150-450); RED BLOOD COUNT 3.45 10^6/uL (4.00-5.40); WHITE BLOOD COUNT 6.9 10^3/uL (4.0-10.0)
[2020-10-03 06:19] VITALS: BP 121/74
[2020-10-03] MEDS: LEVOTHYROXINE 100MCG TABLET (0.1MG) PO SCH (06:22)
[2020-10-03 06:38] LABS: BLOOD UREA NITROGEN 10 MG/DL (7-18); CALCIUM LEVEL 8.3 MG/DL (8.5-10.1); CARBON DIOXIDE LEVEL 24 MEQ/L (21-32); CHLORIDE LEVEL 112 MEQ/L (98-107); CREATININE FOR GFR 0.53 MG/DL (0.55-1.30); GLOMERULAR FILTRATION RATE > 60.0 (>60); GLUCOSE, FASTING 115 MG/DL (70-100); POTASSIUM SERUM 3.8 MEQ/L (3.5-5.1); SODIUM LEVEL 143 MEQ/L (136-145)
[2020-10-03] MEDS: DOCUSATE SODIUM 100MG CAPSULE PO SCH ×2 (09:00→21:11)
[2020-10-03] MEDS: CYANOCOBALAMIN 500 MCG TAB PO SCH (09:26)
[2020-10-03] MEDS: PANTOPRAZOLE 40MG VIAL (C9113 PER 1) IV SCH (09:26)
--- NOTE | 2020-10-03 12:55 | IPNPDOC ---
Text Note Date of Service The patient was seen on 10/03/20. NOTE Gen. surgery. Dr. Daniels The patient is a 35-year-old female admitted with perforated appendicitis. She states she has continued to note improvement in her pain. She denies any nausea or vomiting. States her urine is less dark in color with more output. Afebrile VSS General. Awake and alert, sitting up in bed, appears in no acute distress. MMM Lungs are clear to auscultation S1-S2 regular rate and rhythm Abdomen is soft, mildly distended, less TTP right lower quadrant, no guarding. WBC 6.9 UC neg Assessment/plan Perforated appendicitis. Patient is reviewed and examined as per Dr. Daniels this morning. Advanced to regular diet IVF D/Cd Continue IV Cipro/Flagyl. Continue to monitor response to antibiotic therapy. Continue to monitor. VS,Fishbone, I+O VS, Fishbone, I+O Laboratory Tests 10/03/20 05:51 Vital Signs Date Time Temp Pulse Resp B/P (MAP) Pulse Ox O2 Delivery O2 Flow Rate FiO2 10/03/20 06:19 98.1 57 18 121/74 (90) 96 Room Air I&O- Last 24 Hours up to 6 AM 10/03/20 06:00 Intake Total 3500 ml Output Total 1225 ml Balance 2275 ml Shereen Iraheta Oct 03, 2020 12:55
[2020-10-03 14:00] VITALS: BP 120/73
[2020-10-03] MEDS: ESCITALOPRAM OXALATE 10 MG TAB (LEXAPRO) PO SCH (19:53)
[2020-10-03] MEDS: LABETALOL 100MG TAB PO SCH ×2 (19:57→21:00)
[2020-10-03 22:00] VITALS: BP 127/78
[2020-10-04] VITALS (7 sets, daily range): BP systolic 111–140; BP diastolic 71–87
[2020-10-04] MEDS: ACETAMINOPHEN TAB 650MG DOSE (2X325MG) PO PRN (04:01)
[2020-10-04] MEDS: CIPROFLOXACIN 400 MG in IV 1 EA IV SCH ×2 (05:08→17:34)
[2020-10-04] MEDS: LEVOTHYROXINE 100MCG TABLET (0.1MG) PO SCH (06:12)
[2020-10-04] MEDS: metroNIDAZOLE 500 MG in IV 1 EA IV SCH ×3 (06:12→18:47)
[2020-10-04] MEDS: KETOROLAC 30 MG/ML 1ML VIAL IV SCH ×4 (06:17→17:34)
[2020-10-04] MEDS ORDERED: ISOVUE-370 76% 100ML VIAL As Ordered ONE (07:31)
[2020-10-04 07:48] LABS: HEMATOCRIT 30.3 % (36.0-47.0); MEAN CORPUSCULAR HEMOGLOBIN 28.1 pg (27.0-33.0); MEAN CORPUSCULAR VOLUME 85.1 fl (80.0-96.0); PLATELET COUNT, AUTOMATED 333 10^3/uL (150-450); RED BLOOD COUNT 3.56 10^6/uL (4.00-5.40); WHITE BLOOD COUNT 9.2 10^3/uL (4.0-10.0)
[2020-10-04 08:00] LABS: BLOOD UREA NITROGEN 7 MG/DL (7-18); CALCIUM LEVEL 8.1 MG/DL (8.5-10.1); CARBON DIOXIDE LEVEL 24 MEQ/L (21-32); CHLORIDE LEVEL 112 MEQ/L (98-107); CREATININE FOR GFR 0.54 MG/DL (0.55-1.30); GLOMERULAR FILTRATION RATE > 60.0 (>60); GLUCOSE, FASTING 104 MG/DL (70-100); POTASSIUM SERUM 3.8 MEQ/L (3.5-5.1); SODIUM LEVEL 143 MEQ/L (136-145)
[2020-10-04] MEDS: GASTROGRAFIN SOLUTION 30ML PO SCH ×2 (08:03→08:29)
--- NOTE | 2020-10-04 08:54 | IPNPDOC ---
Text Note Date of Service The patient was seen on 10/04/20. NOTE Gen. surgery. Dr. Daniels The patient is a 35-year-old female admitted with perforated appendicitis. Patient states her pain is about the same this morning. She denies any nausea or vomiting. MAXIMUM TEMPERATURE 100.2 VSS General. Awake and alert, sitting up in bed, appears in no acute distress. MMM Lungs are clear to auscultation S1-S2 regular rate and rhythm Abdomen is soft, mildly distended, less TTP right lower quadrant, no guarding. WBC 9.2 Assessment/plan Perforated appendicitis. Patient is reviewed with Dr. Daniels this morning. Currently regular diet Continue IV Cipro/Flagyl. Continue to monitor response to antibiotic therapy. The patient is noted to have persistent pain and low-grade temp. CT scan abdomen/pelvis with contrast is ordered this morning and imaging is pending at this time. Further recommendations pending review of imaging as per Dr. Daniels. VS,Fishbone, I+O VS, Fishbone, I+O Laboratory Tests 10/04/20 07:14 Vital Signs Date Time Temp Pulse Resp B/P (MAP) Pulse Ox O2 Delivery O2 Flow Rate FiO2 10/04/20 04:06 100.2 66 18 126/75 (92) 97 Room Air I&O- Last 24 Hours up to 6 AM 10/04/20 06:00 Intake Total 450 ml Output Total 400 ml Balance 50 ml Shereen Iraheta Oct 04, 2020 08:54
[2020-10-04] MEDS: DOCUSATE SODIUM 100MG CAPSULE PO SCH ×2 (09:19→21:20)
[2020-10-04] MEDS: CYANOCOBALAMIN 500 MCG TAB PO SCH (09:21)
[2020-10-04] MEDS: PANTOPRAZOLE 40MG VIAL (C9113 PER 1) IV SCH (09:29)
--- NOTE | 2020-10-04 12:21 | REP ---
INDICATION: ?abscess. COMPARISON: Comparison is made with CT study of the abdomen and pelvis from September 30, 2020.. TECHNIQUE: Helical scanning is acquired and 3 mm axial images re-formatted. Coronal and sagittal MPR images are generated. The CT contrast enhancement dose is 100 mL of intravenous Isovue 370. 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 There is a small new right pleural effusion noted on axial CT images at lung window settings. No infiltrate is seen. The patient is status post gastric bypass procedure. No focal hepatic or splenic lesion is seen. Normal adrenal glands are again noted. No abnormality is noted in the gallbladder or pancreas. The kidneys enhance symmetrically and are morphologically intact. There is a Kailyn appendiceal abscess in the retrocecal region today with heterogeneous fluid and air in a collection measuring 4.3 x 5.2 x 3.0 cm. There is an appendicular lith near the base of the appendix as noted previously. There are 2 or 3 adjacent slightly hypertrophic lymph nodes. There is no evidence of dispersed or free intraperitoneal air. There is inflammatory streaking in the Kailyn appendiceal fat similar to the prior study. Oral contrast is seen opacifying small bowel loops which display are fluid levels. Question mild ileus. On pelvic CT images a vaginal diaphragm is again noted in place. The uterus is tipped somewhat to the right and retroverted. No pelvic mass or adenopathy. IMPRESSION: There is a retrocecal Kailyn appendiceal abscess visible today measuring 5.2 cm in greatest diameter. CT-guided catheter abscess drainage procedure can be considered if desired. <Electronically signed by Joey Estrada > 10/04/20 [id number]
[2020-10-04] MEDS ORDERED: LIDOCAINE 1% MDV 20ML VIAL As Ordered ONE (14:18)
[2020-10-04] MEDS ORDERED: SODIUM BICARBONATE 8.4% INJ 50MEQ 50 ML VIAL As Ordered ONE (14:18)
--- NOTE | 2020-10-04 17:04 | REP ---
INDICATION: abscess drainage. COMPARISON: None. TECHNIQUE: The procedure is performed by Gabby Quiroz [facility], under the direct supervision of Dr. Estrada. The risks and benefits of the procedure were explained to the patient and informed consent was obtained both orally and written. Directly prior to the start of the procedure, a formal timeout was done in the exam room. The right lower quadrant abscess was localized using CT guidance. Skin was prepped and draped in the usual sterile fashion. Eighteen ml of buffered lidocaine was used as a local anesthetic. FINDINGS: Using CT guidance and trochar technique a 10 Mongolian multi side hole pigtail catheter was inserted and advanced into the abscess. 30 mL of purulent fluid was aspirated and sent to the laboratory for further analysis. The catheter was sutured into place, a sterile dressing was applied, and a drainage bag was attached. CT images obtained directly after demonstrates the tube to be in good position. After the appropriate amount of monitored convalescence the patient was discharged from the department. IMPRESSION: CT-guided pigtail catheter placement. <Electronically signed by Gabby Quiroz > 10/04/20 1648 <Electronically signed by Joey Estrada > 10/04/20 1700
[2020-10-04] MEDS: LABETALOL 100MG TAB PO SCH ×2 (21:00→21:24)
[2020-10-04] MEDS: ESCITALOPRAM OXALATE 10 MG TAB (LEXAPRO) PO SCH (21:20)
[2020-10-05] MEDS: metroNIDAZOLE 500 MG in IV 1 EA IV SCH ×4 (00:17→18:34)
[2020-10-05] MEDS: KETOROLAC 30 MG/ML 1ML VIAL IV SCH ×4 (00:18→17:21)
[2020-10-05 02:00] VITALS: BP 121/76
[2020-10-05] MEDS: CIPROFLOXACIN 400 MG in IV 1 EA IV SCH ×2 (05:03→17:21)
[2020-10-05] MEDS: LEVOTHYROXINE 100MCG TABLET (0.1MG) PO SCH (06:33)
[2020-10-05 06:42] VITALS: BP 109/73
[2020-10-05] MEDS: PANTOPRAZOLE 40MG VIAL (C9113 PER 1) IV SCH (09:07)
[2020-10-05] MEDS: DOCUSATE SODIUM 100MG CAPSULE PO SCH ×2 (09:08→20:21)
[2020-10-05] MEDS: CYANOCOBALAMIN 500 MCG TAB PO SCH (09:08)
[2020-10-05 09:26] LABS: HEMATOCRIT 29.9 % (36.0-47.0); HEMOGLOBIN 9.9 g/dl (12.0-15.5); MEAN CORPUSCULAR HEMOGLOBIN 28.4 pg (27.0-33.0); MEAN CORPUSCULAR HGB CONC 33.1 g/dl (32.0-36.5); MEAN CORPUSCULAR VOLUME 85.9 fl (80.0-96.0); PLATELET COUNT, AUTOMATED 337 10^3/uL (150-450); RED BLOOD COUNT 3.48 10^6/uL (4.00-5.40); WHITE BLOOD COUNT 7.6 10^3/uL (4.0-10.0)
[2020-10-05 09:45] LABS: BLOOD UREA NITROGEN 6 MG/DL (7-18); CALCIUM LEVEL 8.1 MG/DL (8.5-10.1); CARBON DIOXIDE LEVEL 24 MEQ/L (21-32); CHLORIDE LEVEL 112 MEQ/L (98-107); CREATININE FOR GFR 0.51 MG/DL (0.55-1.30); GLOMERULAR FILTRATION RATE > 60.0 (>60); GLUCOSE, FASTING 139 MG/DL (70-100); POTASSIUM SERUM 3.6 MEQ/L (3.5-5.1); SODIUM LEVEL 143 MEQ/L (136-145)
[2020-10-05 14:00] VITALS: BP 138/87
--- NOTE | 2020-10-05 18:41 | IPN ---
PROGRESS NOTE DATE: 10/05/2020 SUBJECTIVE: Patient is status post percutaneous drainage of a periappendiceal abscess yesterday. States that her abdominal pain has improved since yesterday. She has been afebrile today and her white count is normal. She has not had any fevers or chills. Did have some sweating episodes last night, but was not shown to be febrile at this time. PHYSICAL EXAMINATION: ABDOMEN: Nondistended, nontender, is slowly decreasing in the amount of tenderness and pain on the right lateral abdomen, without guarding, without rebound. Geo-Campos (GIACOMO) drainage, however, has some fecal/purulent material within this. It is not very much, but it still is obvious abscess drainage site. IMPRESSION AND PLAN: Patient is status post percutaneous drainage, seems to be making some slow but progressive improvements. At this point, my recommendation is for intravenous (IV) antibiotics to continue. We will watch her overnight. If she has continued improvement, I anticipate we should be able to discharge her home with wound care/drainage care instructions and then I will see her next week in the office on Thursday for reevaluation for possible drainage tube removal, depending on the output. In any case, my recommendation is continue with current treatment.
[2020-10-05 20:21] VITALS: BP 134/81
[2020-10-05] MEDS: LABETALOL 100MG TAB PO SCH (20:21)
[2020-10-05] MEDS: ESCITALOPRAM OXALATE 10 MG TAB (LEXAPRO) PO SCH (20:21)
[2020-10-05 22:00] VITALS: BP 134/82
[2020-10-06] MEDS: KETOROLAC 30 MG/ML 1ML VIAL IV SCH (00:43)
[2020-10-06] MEDS: metroNIDAZOLE 500 MG in IV 1 EA IV SCH ×2 (00:43→08:12)
[2020-10-06] MEDS: LEVOTHYROXINE 100MCG TABLET (0.1MG) PO SCH (06:19)
[2020-10-06] MEDS: CIPROFLOXACIN 400 MG in IV 1 EA IV SCH (06:19)
[2020-10-06 06:41] VITALS: BP 151/87
[2020-10-06 07:23] LABS: HEMATOCRIT 30.9 % (36.0-47.0); MEAN CORPUSCULAR HEMOGLOBIN 27.9 pg (27.0-33.0); MEAN CORPUSCULAR HGB CONC 32.4 g/dl (32.0-36.5); MEAN CORPUSCULAR VOLUME 86.3 fl (80.0-96.0); PLATELET COUNT, AUTOMATED 377 10^3/uL (150-450); RED BLOOD COUNT 3.58 10^6/uL (4.00-5.40); WHITE BLOOD COUNT 8.1 10^3/uL (4.0-10.0)
[2020-10-06 07:31] LABS: BLOOD UREA NITROGEN 7 MG/DL (7-18); CALCIUM LEVEL 8.5 MG/DL (8.5-10.1); CARBON DIOXIDE LEVEL 27 MEQ/L (21-32); CHLORIDE LEVEL 108 MEQ/L (98-107); CREATININE FOR GFR 0.57 MG/DL (0.55-1.30); GLOMERULAR FILTRATION RATE > 60.0 (>60); GLUCOSE, FASTING 106 MG/DL (70-100); POTASSIUM SERUM 3.7 MEQ/L (3.5-5.1); SODIUM LEVEL 142 MEQ/L (136-145)
[2020-10-06] MEDS: PANTOPRAZOLE 40MG VIAL (C9113 PER 1) IV SCH (08:12)
[2020-10-06] MEDS: CYANOCOBALAMIN 500 MCG TAB PO SCH (08:12)
[2020-10-06] MEDS: DOCUSATE SODIUM 100MG CAPSULE PO SCH (08:14)
[2020-10-06] MEDS ORDERED: CIPR250T3 PO (09:36)
[2020-10-06] MEDS ORDERED: METR-265 PO (09:36)
== END 2020-10-06 12:25 | disposition home or self-care (01) | DRG 248 ==
LOC: M ED 14:05 → M ED INP 16:58 → ENRESERV 17:15 → M MS5PR 18:45
PROVIDERS: ADMIT Surgery; ATTEND Surgery
PROC: 0W9G30Z Drainage of Peritoneal Cavity with Drainage Device, Percutaneous Approach (ICD-10-PCS; principal; 2020-10-04 16:00)
DX: K35.33 Acute appendicitis with perforation, localized peritonitis, and gangrene, with abscess (principal); I10 Essential (primary) hypertension; E03.9 Hypothyroidism, unspecified; F41.9 Anxiety disorder, unspecified; E78.5 Hyperlipidemia, unspecified; Z98.84 Bariatric surgery status; Z79.899 Other long term (current) drug therapy

== ENCOUNTER → 2020-10-16 | Outpatient (CLI) | payer BC ==
[~2020-10-16] MED LIST changes: +BIOT10009 PO; +CIPR250T3 PO; +ESCITALOPRAM; +ETON1VAG PV; +GASTROGRAFIN SOLUTION 30ML (Q9963) As Ordered ONE; +ISOVUE-370 76% 100ML VIAL As Ordered ONE; +LEXA1TAB2 PO; +METR-265 PO; +OMEP-221 PO; +VITA-172 PO
--- NOTE | 2020-10-17 06:12 | REP ---
INDICATION: APPENDICEAL ABSCESS. COMPARISON: 10/04/2020 TECHNIQUE: Axial contrast-enhanced images from the lung bases to the pubic symphysis using oral and 100 cc Isovue 370 intravenous contrast material. Coronal and sagittal reformations obtained. This CT examination was performed using the following dose reduction techniques: Automated exposure control, adjustment of mA and/or kv according to the patient's size, and the use of iterative reconstruction technique. FINDINGS: Liver, spleen, pancreas, gallbladder, bilateral adrenal glands and kidneys are normal. Evidence for prior gastric bypass surgery noted.. Pigtail catheter in the right lower quadrant adjacent to the presumed residual appendiceal tip noted with mild to moderate surrounding inflammatory change and few small reactive lymph nodes. No residual fluid collection/abscess is identified. Terminal ileum and cecum appear normal. No evidence for bowel obstruction. Few scattered colonic diverticula noted without acute diverticulitis. Pelvis demonstrates normal bladder and age-appropriate uterus/adnexa. No ascites. No free air. No intraperitoneal or retroperitoneal adenopathy. Abdominal aorta and vasculature appear normal. Musculoskeletal structures are intact and without acute osseous abnormality. IMPRESSION: 1. Pigtail catheter in the right lower quadrant with mild surrounding inflammatory stranding and few small reactive lymph nodes. Abscess has resolved and no drainable fluid collection in the right lower quadrant is identifiable. 2. No bowel obstruction or new acute inflammatory process. No free air. <Electronically signed by Shad Floyd > 10/17/20 0608
== END ==
LOC: M RAD 12:04
PROVIDERS: ATTEND Surgery
DX: K35.33 Acute appendicitis with perforation, localized peritonitis, and gangrene, with abscess (principal)
CPT/HCPCS: 74177; Q9963; Q9967

== ENCOUNTER 2020-10-28 17:50 | Inpatient (IN) | payer BC ==
[~2020-10-28] VITALS: Ht 160 cm; Wt 79.5 kg
[~2020-10-28 17:50] MED LIST changes: -GASTROGRAFIN SOLUTION 30ML (Q9963) As Ordered ONE; -ISOVUE-370 76% 100ML VIAL As Ordered ONE
[2020-10-28] MEDS ORDERED: BARI1CAP PO (18:00)
[2020-10-28] MEDS ORDERED: ACETAMINOPHEN 325 MG TAB PO ONE (19:30)
[2020-10-28] MEDS ORDERED: NS 1,000 ML IV ONE ×2 (19:30→21:10)
[2020-10-28 19:40] LABS: BASO % 0.2 % (0.0-1.0); EOS # 0.1 10^3/uL (0.0-0.5); EOS % 1.2 % (0.0-3.0); HEMATOCRIT 34.7 % (36.0-47.0); HEMOGLOBIN 11.3 g/dl (12.0-15.5); LYMPH # 2.6 10^3/uL (1.5-5.0); LYMPH % 24.9 % (24.0-44.0); MEAN CORPUSCULAR HEMOGLOBIN 28.2 pg (27.0-33.0); MEAN CORPUSCULAR HGB CONC 32.6 g/dl (32.0-36.5); MEAN CORPUSCULAR VOLUME 86.5 fl (80.0-96.0); MONO % 9.4 % (2.0-8.0); NEUTROPHILS # 6.6 10^3/uL (1.5-8.5); PLATELET COUNT, AUTOMATED 288 10^3/uL (150-450); RED BLOOD COUNT 4.01 10^6/uL (4.00-5.40); WHITE BLOOD COUNT 10.3 10^3/uL (4.0-10.0)
[2020-10-28] MEDS ORDERED: MORPHINE 4 MG/ML 1ML VIAL/SYRINGE (J2270) IV ONE ×2 (19:45→22:50)
[2020-10-28] MEDS ORDERED: PIPERACILLIN/TAZOBACTAM SOD 4.5 GM in D5W MINI-BAG PLUS 50 ML IV ONE (19:45)
[2020-10-28] MEDS ORDERED: ONDANSETRON 4MG/2ML VIAL IV ONE (19:45)
[2020-10-28 20:06] LABS: HCG, SERUM QUALITATIVE NEGATIVE (NEGATIVE)
[2020-10-28 20:07] LABS: ALBUMIN 3.4 GM/DL (3.2-5.2); ALT/SGPT 17 U/L (12-78); BILIRUBIN,DIRECT 0.1 MG/DL (0.0-0.2); BILIRUBIN,TOTAL 0.6 MG/DL (0.2-1.0); BLOOD UREA NITROGEN 14 MG/DL (7-18); CARBON DIOXIDE LEVEL 27 MEQ/L (21-32); CHLORIDE LEVEL 105 MEQ/L (98-107); CREATININE FOR GFR 0.62 MG/DL (0.55-1.30); GLOMERULAR FILTRATION RATE > 60.0 (>60); GLUCOSE, FASTING 87 MG/DL (70-100); LIPASE 154 U/L (73-393); POTASSIUM SERUM 3.6 MEQ/L (3.5-5.1); SODIUM LEVEL 138 MEQ/L (136-145); TOTAL PROTEIN 7.2 GM/DL (6.4-8.2)
[2020-10-28] MEDS: GASTROGRAFIN SOLUTION 30ML PO SCH ×2 (20:43→21:23)
[2020-10-28] MEDS: SENOKOT S TAB PO SCH (21:00)
[2020-10-28] MEDS ORDERED: ISOVUE-370 76% 100ML VIAL As Ordered ONE (21:25)
[2020-10-28 21:54] LABS: RSV AMPLIFICATION NEGATIVE (NEGATIVE)
[2020-10-28] MEDS ORDERED: MORPHINE 2 MG/ML 1ML VIAL (J2270) IV PRN (23:10)
[2020-10-28] MEDS ORDERED: NORCO, ANEXSIA 5/325MG TABLET (HYDROcodone/ACETAMINOPHEN) PO PRN (23:10)
[2020-10-28] MEDS ORDERED: ONDANSETRON 4MG/2ML VIAL IV PRN (23:10)
--- NOTE | 2020-10-28 23:31 | REPVR ---
PROCEDURE INFORMATION: Exam: CT Abdomen And Pelvis With Contrast Exam date and time: 10/28/2020 10:34 PM Age: 35 years old Clinical indication: Other: Susepcted rlq intrabdominal abscess TECHNIQUE: Imaging protocol: Computed tomography of the abdomen and pelvis with contrast. Radiation optimization: All CT scans at this facility use at least one of these dose optimization techniques: automated exposure control; mA and/or kV adjustment per patient size (includes targeted exams where dose is matched to clinical indication); or iterative reconstruction. Contrast material: ISOVUE 370; Contrast volume: 100 ml; Contrast route: INTRAVENOUS (IV); COMPARISON: CT ABD PELVIS WITH CONTRAST 10/16/2020 2:10 PM FINDINGS: Tubes, catheters and devices: Interval removal of a pigtail catheter from the right pericolic gutter since 10/16/2020. Lungs: Minimal dependent atelectasis in the lower lobes. Liver: There is low attenuation adjacent to the falciform ligament of the liver consistent with focal fatty infiltration. Gallbladder and bile ducts: Normal. No calcified stones. No ductal dilation. Pancreas: Normal. No ductal dilation. Spleen: Normal. No splenomegaly. Adrenal glands: Normal. No mass. Kidneys and ureters: Normal. No hydronephrosis. Stomach and bowel: There has been gastric bypass with collapse of the bypassed stomach. Appendix: There is increased inflammatory infiltration in the right pericolic gutter. There is heterogeneous density with multiple small foci of gas which may reflect residua of the catheter. There are ill-defined low-attenuation areas consistent with developing pockets of abscess within the right pericolic gutter. This heterogeneous developing abscess measures approximately 5.5 x 4.4 x 6.4 cm. There is a calcification within the area suggesting an appendicolith. This appears to extend cephalad from the cecal tip consistent with ruptured retrocecal appendicitis. There is inflammatory wall thickening of the adjacent distal ileum consistent with secondary inflammatory involvement. Intraperitoneal space: Unremarkable. No free air. No significant fluid collection. Vasculature: Unremarkable. No abdominal aortic aneurysm. Lymph nodes: There are a few borderline right lower quadrant mesenteric nodes which are increased since the prior study consistent with reactive origin. Urinary bladder: Unremarkable as visualized. Reproductive: Unremarkable as visualized. There is a cervical cap or diaphragm in position. Bones/joints: Unremarkable. No acute fracture. Soft tissues: Unremarkable. IMPRESSION: 1. Residua of ruptured retrocecal appendicitis with prominent inflammatory change and developing abscess which is increased since 10/16/2020. The pigtail drain has been removed since the prior study. 2. There are a few borderline right lower quadrant mesenteric nodes which are increased in size since the prior study consistent with reactive origin. 3. Status post gastric bypass. Electronically signed by: Bruno Kiran On 10/28/2020 23:30:29 PM
[2020-10-29] VITALS (7 sets, daily range): BP systolic 98–118; BP diastolic 51–63
[2020-10-29] MEDS: KETOROLAC 30 MG/ML 1ML VIAL IV PRN ×2 (00:18→14:25)
[2020-10-29] MEDS: LR 1,000 ML IV SCH ×2 (01:02→16:55)
[2020-10-29] MEDS: PIPERACILLIN/TAZOBACTAM SOD 3.375 GM in D5W MINI-BAG PLUS 50 ML IV SCH ×4 (02:28→20:50)
[2020-10-29] MEDS: NORCO, ANEXSIA 5/325MG TABLET (HYDROcodone/ACETAMINOPHEN) PO PRN ×3 (05:52→18:53)
[2020-10-29] MEDS: ENOXAPARIN 40MG/0.4ML SYRINGE (J1650 PER 10MG) SC SCH (09:00)
[2020-10-29] MEDS: SENOKOT S TAB PO SCH ×2 (09:22→20:50)
[2020-10-29 10:21] LABS: BASO % 0.2 % (0.0-1.0); EOS # 0.1 10^3/uL (0.0-0.5); EOS % 1.6 % (0.0-3.0); HEMATOCRIT 31.6 % (36.0-47.0); LYMPH # 2.2 10^3/uL (1.5-5.0); LYMPH % 25.2 % (24.0-44.0); MEAN CORPUSCULAR HEMOGLOBIN 27.7 pg (27.0-33.0); MEAN CORPUSCULAR HGB CONC 31.6 g/dl (32.0-36.5); MEAN CORPUSCULAR VOLUME 87.5 fl (80.0-96.0); MONO % 11.1 % (2.0-8.0); NEUTROPHILS # 5.5 10^3/uL (1.5-8.5); NEUTROPHILS % 61.6 % (36.0-66.0); PLATELET COUNT, AUTOMATED 230 10^3/uL (150-450); RED BLOOD COUNT 3.61 10^6/uL (4.00-5.40); WHITE BLOOD COUNT 8.9 10^3/uL (4.0-10.0)
[2020-10-29 10:46] LABS: BLOOD UREA NITROGEN 10 MG/DL (7-18); C REACTIVE PROTEIN QUANTITATIV 8.83 MG/DL (0.00-0.30); CALCIUM LEVEL 8.2 MG/DL (8.5-10.1); CARBON DIOXIDE LEVEL 25 MEQ/L (21-32); CHLORIDE LEVEL 110 MEQ/L (98-107); CREATININE FOR GFR 0.61 MG/DL (0.55-1.30); GLOMERULAR FILTRATION RATE > 60.0 (>60); GLUCOSE, FASTING 90 MG/DL (70-100); POTASSIUM SERUM 3.9 MEQ/L (3.5-5.1); SODIUM LEVEL 142 MEQ/L (136-145)
--- NOTE | 2020-10-29 15:06 | HPEPDOC ---
General Surgery H&P Date of Admission October 28, 2020 History and Physical Gen. surgery. Dr. Hargrove HISTORY OF PRESENT ILLNESS: The patient is a 35-year-old female previously admitted from 09/30/20-10/06/20 with ruptured appendicitis with periappendiceal abscess treated with IV antibiotics, drain placement. The patient was transitioned to oral antibiotics and discharged for outpatient follow-up. The patient was seen in follow-up by Dr. Daniels 10/20/20, the drain was removed and plan was for laparoscopic appendectomy in 4-6 weeks. She finished oral antibiotics on 10/25/20. The patient states that Thursday evening she began to notice recurrent abdominal discomfort and Thursday morning it was worsening with the development of fever so she came to the emergency department for further evaluation. ALLERGIES: Please see below. HOME MEDICATIONS: Please see below. Past medical history/past surgical history Gastric bypass Morbid obesity left knee arthroscopy right knee ACL repair Hypertension dyslipidemia Hypothyroidism Anxiety PERSONAL/SOCIAL HISTORY: Nonsmoker REVIEW OF SYSTEMS: As noted in HPI otherwise 10 point review of systems unremarkable. PHYSICAL EXAMINATION: VITAL SIGNS: Please see below. GENERAL APPEARANCE: Resting in bed, awake alert. No acute distress HEENT: Normocephalic, atraumatic. Anicteric sclerae. Lips moist. NECK: Supple. LUNGS: Lung sounds are clear to auscultation bilaterally. HEART: Heart rate and rhythm are regular ABDOMEN: Abdomen is soft, slightly rounded, nondistended. Mild tenderness with palpation in the right lower quadrant, no guarding. SKIN: Warm, moist. EXTREMITIES: No edema identified. LABORATORY DATA: WBC on admission 10.3, this morning 8.9. Hemoglobin 10.0 Platelets 230 CRP 8.83 IMAGING: CT abdomen/pelvis with contrast 10/28/20 Appendix: There is increased inflammatory infiltration in the right pericolic gutter. There is heterogeneous density with multiple small foci of gas which may reflect residua of the catheter. There are ill-defined low-attenuation areas consistent with developing pockets of abscess within the right pericolic gutter. This heterogeneous developing abscess measures approximately 5.5 x 4.4 x 6.4 cm. There is a calcification within the area suggesting an appendicolith. This appears to extend cephalad from the cecal tip consistent with ruptured retrocecal appendicitis. There is inflammatory wall thickening of the adjacent distal ileum consistent with secondary inflammatory involvement. IMPRESSION: 1. Residua of ruptured retrocecal appendicitis with prominent inflammatory change and developing abscess which is increased since 10/16/2020. The pigtail drain has been removed since the prior study. 2. There are a few borderline right lower quadrant mesenteric nodes which are increased in size since the prior study consistent with reactive origin. 3. Status post gastric bypass. Electronically signed by: Bruno Kiran On 10/28/2020 23:30:29 PM IMPRESSION AND PLAN: Ruptured appendicitis with periappendiceal abscess. Previous admission with DC 10/06/20. Perc Drain had been removed 10/20 and patient finished course of oral antibiotics 10/25. The patient developed fever and recurrent abdominal pain and was admitted 10/28/20. The patient is reviewed and examined as per Dr. Hargrove this morning. Plan to continue with NPO, IV fluids, IV antibiotics, pain control. Percutaneous drain placement as per IR requested. Continue to monitor. DVT px. Lovenox SQ Vital Signs Vital Signs Date Time Temp Pulse Resp B/P (MAP) Pulse Ox O2 Delivery O2 Flow Rate FiO2 10/29/20 14:10 101.2 10/29/20 13:30 18 10/29/20 12:01 75 118/58 (78) 96 Room Air I&Os I&O- Last 24 Hours up to 6 AM 10/29/20 06:00 Intake Total 1100 ml Output Total 200 ml Balance 900 ml Laboratory Data Labs 24H Laboratory Tests 2 10/28/20 19:30: Immature Granulocyte % (Auto) 0.3, Neutrophils (%) (Auto) 64.0, Lymphocytes (%) (Auto) 24.9, Monocytes (%) (Auto) 9.4H, Eosinophils (%) (Auto) 1.2, Basophils (%) (Auto) 0.2, Neutrophils # (Auto) 6.6, Lymphocytes # (Auto) 2.6, Monocytes # (Auto) 1.0H, Eosinophils # (Auto) 0.1, Basophils # (Auto) 0.0, Nucleated Red Bl ood Cells % (auto) 0.0, Anion Gap 6L, Glomerular Filtration Rate > 60.0, Calcium Level 8.0L, Total Bilirubin 0.6, Direct Bilirubin 0.1, Aspartate Amino Transf (AST/SGOT) 9, Alanine Aminotransferase (ALT/SGPT) 17, Alkaline Phosphatase 63, Total Protein 7.2, Albumin 3.4, Albumin/Globulin Ratio 0.9L, Lipase 154, Human Chorionic Gonadotropin, Qual NEGATIVE 10/28/20 21:09: Coronavirus (COVID-19)(PCR) NEGATIVE, Influenza Type A (RT-PCR) NEGATIVE, Influenza Type B (RT-PCR) NEGATIVE, Respiratory Syncytial Virus (PCR) NEGATIVE 10/28/20 22:00: Urine Color STRAW, Urine Appearance CLEAR, Urine pH 6.0, Urine Specific [place] 1.005, Urine Protein NEGATIVE, Urine Glucose (UA) NEGATIVE, Urine Ketones NEGATIVE, Urine Blood NEGATIVE, Urine Nitrite NEGATIVE, Urine Bilirubin NEGATIVE, Urine Urobilinogen 0.2, Urine Leukocyte Esterase NEGATIVE, Urine WBC (Auto) 0, Urine RBC (Auto) 0, Urine Hyaline Casts (Auto) 0, Urine Bacteria (Auto) NEGATIVE, Urine Squamous Epithelial Cells 1, Urine Sperm (Auto) 10/29/20 09:56: Immature Granulocyte % (Auto) 0.3, Neutrophils (%) (Auto) 61.6, Lymphocytes (%) (Auto) 25.2, Monocytes (%) (Auto) 11.1H, Eosinophils (%) (Auto) 1.6, Basophils (%) (Auto) 0.2, Neutrophils # (Auto) 5.5, Lymphocytes # (Auto) 2.2, Monocytes # (Auto) 1.0H, Eosinophils # (Auto) 0.1, Basophils # (Auto) 0.0, Nucleated Red Blood Cells % (auto) 0.0, Anion Gap 7L, Glomerular Filtration Rate > 60.0, Calcium Level 8.2L, C-Reactive Protein, Quantitative 8.83H CBC/BMP Laboratory Tests 10/28/20 19:30 10/29/20 09:56 Microbiology Microbiology 10/29/20 Blood Culture, Received Pending 10/28/20 Blood Culture, Received Pending Home Medications Scheduled Biotin (Biotin) 1,000 Mcg Tab.chew, 1,000 MCG PO QPM, (Reported) Cyanocobalamin (Vitamin B-12) (Vitamin B-12) 500 Mcg Tablet, 1,000 MCG PO DAILY, (Reported) Escitalopram Oxalate (Lexapro) 20 Mg Tablet, 20 MG PO QHS, (Reported) Etonogestrel/Ethinyl Estradiol (Eluryng Vaginal Ring) 1 Each Vag.ring, 1 RING PV ASDIRECTED, (Reported) INSERT FOR 3 WEEKS, OUT FOR 1 WEEK Labetalol HCl (Labetalol HCl) 100 Mg Tab, 50 MG PO QHS, (Reported) Levothyroxine Sodium (Levothyroxine Sodium) 100 Mcg Tab, 100 MCG PO DAILY, (Reported) Multivit-Min/Iron/Folic Acid/K (Bariatric Mv-Iron 45 mg Cap) 1 Each Capsule, 2 CAP PO BID, (Reported) Omeprazole (Omeprazole) 40 Mg Capsule.dr, 40 MG PO DAILY, (Reported) Allergies Coded Allergies: No Known Allergies (Unverified , 02/18/17) A-FIB/CHADSVASC A-FIB History Current/History of A-Fib/PAF?: No Current PO Anticoag Therapy: No Shereen Iraheta October 29, 2020 15:06
[2020-10-29] MEDS ORDERED: LIDOCAINE 1% MDV 20ML VIAL As Ordered ONE (15:24)
[2020-10-29] MEDS ORDERED: SODIUM BICARBONATE 8.4% INJ 50MEQ 50 ML VIAL As Ordered ONE (15:24)
[2020-10-30] VITALS: BP 107/75
[2020-10-30] MEDS: PIPERACILLIN/TAZOBACTAM SOD 3.375 GM in D5W MINI-BAG PLUS 50 ML IV SCH ×4 (02:44→20:14)
[2020-10-30] MEDS: KETOROLAC 30 MG/ML 1ML VIAL IV PRN (04:01)
[2020-10-30 06:00] VITALS: BP 115/70
[2020-10-30] MEDS: ACETAMINOPHEN TAB 650MG DOSE (2X325MG) PO PRN (06:12)
[2020-10-30 08:00] VITALS: BP 92/53
[2020-10-30] MEDS: ENOXAPARIN 40MG/0.4ML SYRINGE (J1650 PER 10MG) SC SCH (08:50)
[2020-10-30] MEDS: SENOKOT S TAB PO SCH ×2 (08:57→20:15)
--- NOTE | 2020-10-30 09:54 | REP ---
INDICATION: rlq abscess, ruptured appendicitis. COMPARISON: None. TECHNIQUE: The procedure is performed by Gabby Quiroz [facility], under the direct supervision of Dr. Estrada. The risks and benefits of the procedure were explained to the patient and informed consent was obtained both orally and written. Directly prior to the start of the procedure, a formal timeout was done in the exam room. The right lower quadrant abscess was localized using CT guidance. Skin was prepped and draped in the usual sterile fashion. Eleven ml of buffered lidocaine was used as a local anesthetic. FINDINGS: Using CT guidance and trochar technique a 10 [place] pigtail catheter was inserted and advanced into the pelvic abscess. Approximately 43 mL of pus was aspirated and sent to the lab for analysis. The drainage tube was sutured into place, a drainage bag was attached, and a sterile dressing was applied. CT images obtained directly after the biopsy showed the tube to be in good placement. After the appropriate amount of monitored convalescence the patient was discharged from the department. IMPRESSION: CT-guided 10 [place] pigtail catheter placement into right lower quadrant abscess. <Electronically signed by Gabby Quiroz > 10/29/20 1718 <Electronically signed by Joey Estrada > 10/30/20 [id number]
[2020-10-30] MEDS: LR 1,000 ML IV SCH ×2 (11:26→18:47)
[2020-10-30 14:50] VITALS: BP 111/66
--- NOTE | 2020-10-30 16:54 | IPN ---
PROGRESS NOTE DATE: 10/30/2020 Patient's white count had dropped nicely yesterday and seems to be doing well today. She has had some minimal drainage after her Geo-Campos (GIACOMO) was inserted. Had a fair bit out at the time of the procedure, but overall has been doing well. her pain has decreased substantially since yesterday. She has had no nausea, no vomiting, and has been tolerating a diet earlier today. PHYSICAL EXAMINATION: The drainage is still bloody drainage, somewhat turbid. IMPRESSION AND PLAN: Patient has evidence of an appendiceal abscess. At this point we will keep her in overnight. If she is doing well, we will discharge her home tomorrow with the drain in place with plans for a followup in the office and will remove this drain if it clears up and is serous drainage only; however, if it continues draining this turbid fluid, we may need to keep this in until operative intervention. We have discussed our plans at this time. She understands and will continue with intravenous (IV) fluids, IV antibiotics, and see how she is doing in the morning and possible discharge home.
[2020-10-30 20:19] VITALS: BP 110/64
[2020-10-31] MEDS: PIPERACILLIN/TAZOBACTAM SOD 3.375 GM in D5W MINI-BAG PLUS 50 ML IV SCH ×2 (02:33→08:16)
[2020-10-31] MEDS: ACETAMINOPHEN TAB 650MG DOSE (2X325MG) PO PRN (03:54)
[2020-10-31 06:00] VITALS: BP 118/68
[2020-10-31] MEDS: ENOXAPARIN 40MG/0.4ML SYRINGE (J1650 PER 10MG) SC SCH (08:16)
[2020-10-31] MEDS: SENOKOT S TAB PO SCH (08:16)
[2020-10-31] MEDS ORDERED: HYDR-3715 PO (10:19)
[2020-10-31] MEDS ORDERED: AMOX875T2 PO (10:19)
--- NOTE | 2020-11-01 10:47 | DS.PDOC ---
Discharge Summary General Date of Admission October 28, 2020 at 23:09 Date of Discharge 10/31/20 Discharge Summary PROCEDURES PERFORMED DURING STAY: Percutaneous drain placement as per IR. ADMITTING DIAGNOSES: Ruptured appendicitis with periappendiceal abscess Gastric bypass Morbid obesity left knee arthroscopy right knee ACL repair Hypertension dyslipidemia Hypothyroidism Anxiety DISCHARGE DIAGNOSES: Ruptured appendicitis with periappendiceal abscess S/P percutaneous drain placement Gastric bypass Morbid obesity left knee arthroscopy right knee ACL repair Hypertension dyslipidemia Hypothyroidism Anxiety HISTORY OF PRESENT ILLNESS: The patient is a 35-year-old female previously admitted from 09/30/20-10/06/20 with ruptured appendicitis with periappendiceal abscess treated with IV antibiotics, drain placement. The patient was transitioned to oral antibiotics and discharged for outpatient follow-up. The patient was seen in follow-up by Dr. Daniels 10/20/20, the drain was removed and plan was for laparoscopic appendectomy in 4-6 weeks. She finished oral antibiotics on 10/25/20. The patient states that Thursday evening she began to notice recurrent abdominal discomfort and Thursday morning it was worsening with the development of fever so she came to the emergency department for further evaluation. HOSPITAL COURSE: The patient had previous drain placement and this was removed 10/20. The patient finished antibiotics 10/25. The patient was reviewed and examined as per Dr. Hargrove on admission. Percutaneous drain placement as per IR was requested, this was completed 10/29/20 with 43 mL of fluid removed during procedure. Culture is pending at the time of discharge. Subsequently she was followed by Dr. Daniels. Leukocytosis improved. Pain also improved. She was advanced to regular diet. WBC on the day of discharge was noted to be 8.9. She had been afebrile. Discharge arranged to finish course of oral antibiotics with plan for outpatient follow-up. DISCHARGE MEDICATIONS: Please see below. ALLERGIES: Please see below. PHYSICAL EXAMINATION ON DISCHARGE: GENERAL APPEARANCE: Resting in bed, awake alert. No acute distress HEENT: Normocephalic, atraumatic. Anicteric sclerae. Lips moist. NECK: Supple. LUNGS: Lung sounds are clear to auscultation bilaterally. HEART: Heart rate and rhythm are regular ABDOMEN: Abdomen is soft, slightly rounded, nondistended. Decreased tenderness with palpation in the right lower quadrant, no guarding. Percutaneous drain in place with bloody drainage noted. SKIN: Warm, moist. EXTREMITIES: No edema identified. LABORATORY DATA: Please see below. DISCHARGE PLAN: Discharge home DISPOSITION: 01 Home, Self-Care. DISCHARGE INSTRUCTIONS: Activity as tolerated Regular diet Augmentin 875/125 one tablet by mouth twice a day 7 days. Hydrocodone 5/325 as needed for pain. Follow-up with Dr. Daniels 11/07/20 at 11:30 AM. Patient was discharged home with drain in place and continue dry dressing around the drain. Keep area clean and dry. Keep a record of the amount of drainage daily and bring to the appointment. Items to follow-up as outpatient. Percutaneous drain in place Abscess culture is pending at the time of discharge. DISCHARGE CONDITION: Stable. TIME SPENT ON DISCHARGE: Greater than 30 minutes. Vital Signs/I&Os Vital Signs Date Time Temp Pulse Resp B/P (MAP) Pulse Ox O2 Delivery O2 Flow Rate FiO2 10/31/20 06:00 97.8 69 18 118/68 (85) 98 Room Air I&O- Last 24 Hours up to 6 AM 11/01/20 06:00 Intake Total 60 ml Output Total 0 ml Balance 60 ml Microbiology Microbiology 10/29/20 Gram Stain - Final, Resulted 10/29/20 Abscess Culture, Resulted Pending 10/29/20 Anaerobic Culture, Resulted Pending 10/29/20 Blood Culture - Preliminary, Resulted No Growth after 72 hours. All specime... 10/28/20 Blood Culture - Preliminary, Resulted No Growth after 72 hours. All specime... Discharge Medications Scheduled Amoxicillin/Potassium Clav (Amox-Clav 875-125 mg Tablet) 1 Each Tablet, 1 TAB PO BID Biotin (Biotin) 1,000 Mcg Tab.chew, 1,000 MCG PO QPM, (Reported) Cyanocobalamin (Vitamin B-12) (Vitamin B-12) 500 Mcg Tablet, 1,000 MCG PO DAILY, (Reported) Escitalopram Oxalate (Lexapro) 20 Mg Tablet, 20 MG PO QHS, (Reported) Etonogestrel/Ethinyl Estradiol (Eluryng Vaginal Ring) 1 Each Vag.ring, 1 RING PV ASDIRECTED, (Reported) INSERT FOR 3 WEEKS, OUT FOR 1 WEEK Labetalol HCl (Labetalol HCl) 100 Mg Tab, 50 MG PO QHS, (Reported) Levothyroxine Sodium (Levothyroxine Sodium) 100 Mcg Tab, 100 MCG PO DAILY, (Reported) Multivit-Min/Iron/Folic Acid/K (Bariatric Mv-Iron 45 mg Cap) 1 Each Capsule, 2 CAP PO BID, (Reported) Omeprazole (Omeprazole) 40 Mg Capsule.dr, 40 MG PO DAILY, (Reported) Scheduled PRN Hydrocodone/Acetaminophen (Hydrocodone-Acetamin 5-325 mg) 1 Each Tablet, 1 TAB PO Q6HP PRN for MILD/MODERATE PAIN (PS 1-7) Allergies Coded Allergies: No Known Allergies (Unverified , 02/18/17) Shereen Iraheta November 01, 2020 10:43
== END 2020-10-31 12:20 | disposition home or self-care (01) | DRG 248 ==
LOC: M ED 17:50 → M ED INP 23:09 → ENRESERV 10-29 → M PED 10-29 00:40 → M MS5PR 10-30 14:05
PROVIDERS: ADMIT Surgery; ATTEND Surgery
PROC: 0W9G30Z Drainage of Peritoneal Cavity with Drainage Device, Percutaneous Approach (ICD-10-PCS; principal; 2020-10-29 15:30)
DX: K35.33 Acute appendicitis with perforation, localized peritonitis, and gangrene, with abscess (principal); E66.01 Morbid (severe) obesity due to excess calories; I10 Essential (primary) hypertension; E78.5 Hyperlipidemia, unspecified; E03.9 Hypothyroidism, unspecified; F41.9 Anxiety disorder, unspecified; Z98.84 Bariatric surgery status; Z20.822 Contact with and (suspected) exposure to COVID-19

== ENCOUNTER → 2020-11-14 | Outpatient (REF) | payer BC ==
[~2020-11-14] MED LIST changes: +AMOX875T2 PO; +BARI1CAP PO; +HYDR-3715 PO
== END ==
LOC: M LAB REF 16:20
PROVIDERS: ATTEND Surgery
DX: K35.33 Acute appendicitis with perforation, localized peritonitis, and gangrene, with abscess (principal)

== ENCOUNTER → 2020-11-29 | Outpatient (CLI) | payer BC ==
[~2020-11-29] MED LIST changes: +BACTDSTA
== END ==
LOC: M LABSMTC 11:24
PROVIDERS: ATTEND Surgery
DX: Z01.818 Encounter for other preprocedural examination (principal); Z11.52 Encounter for screening for COVID-19

== ENCOUNTER 2020-12-04 09:30 | Day surgery (SDC) | payer BC ==
[~2020-12-04] VITALS: Ht 157.5 cm; Wt 75.3 kg
[~2020-12-04 09:30] MED LIST changes: +LR 1,000 ML IV ONE; +LevoFLOXacin IV 500 MG in IV 1 EA IV ONE
[2020-12-04] MEDS ORDERED: MIDAZOLAM INJ 2MG/2ML VIAL (J2250 PER 1MG) As Ordered ONE (10:44)
[2020-12-04] MEDS ORDERED: fentaNYL 100 MCG/2 ML INJECTION (J3010) As Ordered ONE (10:44)
[2020-12-04] MEDS ORDERED: BUPIVACAINE HCL 0.25% 30ML VIAL As Ordered ONE (11:13)
[2020-12-04] MEDS ORDERED: BUPIVACAINE/EPIN 0.25% 30 ML VIAL As Ordered ONE (11:27)
[2020-12-04] MEDS ORDERED: ONDANSETRON 4MG/2ML VIAL As Ordered ONE (11:48)
[2020-12-04] MEDS ORDERED: propofoL 200 MG/20 ML VIAL As Ordered ONE (11:48)
[2020-12-04] MEDS ORDERED: METOCLOPRAMIDE INJ 10MG/2ML VIAL (J2765 PER 1) As Ordered ONE (11:48)
[2020-12-04] MEDS ORDERED: ROCURONIUM BROMIDE 50 MG/5 ML VIAL As Ordered ONE (11:48)
[2020-12-04] MEDS ORDERED: SUGAMMADEX SODIUM 500 MG/5 ML VIAL (BRIDION) As Ordered ONE (11:48)
[2020-12-04] MEDS ORDERED: dexameTHASONE 4 MG/ML 1ML VIAL (J1100 PER 1MG) As Ordered ONE (11:48)
[2020-12-04] MEDS ORDERED: ACETAMINOPHEN 1000MG 100ML IV BTL (OFIRMEV) (J0131 PER 10MG) As Ordered ONE (11:50)
[2020-12-04] MEDS ORDERED: ePHEDrine SULFATE 25 MG/5 ML(5MG/ML) SYRINGE As Ordered ONE (11:55)
[2020-12-04] MEDS ORDERED: HYDROmorphone HCL 2 MG/ML 1ML VIAL (J1170) As Ordered ONE (12:37)
[2020-12-04] MEDS ORDERED: KETOROLAC 60MG 2ML VIAL As Ordered ONE (12:49)
[2020-12-04] MEDS ORDERED: LR 1,000 ML IV SCH (13:05)
[2020-12-04] MEDS ORDERED: ONDANSETRON 4MG/2ML VIAL IV PRN (13:05)
[2020-12-04] MEDS ORDERED: MEPERIDINE INJ 25 MG/ML VIAL (J2175) IV PRN (13:05)
[2020-12-04] MEDS ORDERED: oxyCODONE 5MG TAB PO PRN (13:05)
[2020-12-04] MEDS ORDERED: fentaNYL 100 MCG/2 ML INJECTION (J3010) IV PRN (13:05)
[2020-12-04] MEDS ORDERED: METOCLOPRAMIDE INJ 10MG/2ML VIAL (J2765 PER 1) IV PRN (13:05)
[2020-12-04] MEDS ORDERED: NS 1,000 ML IV SCH (13:30)
[2020-12-04 15:10] VITALS: BP 97/65
[2020-12-05] MEDS ORDERED: UNRESOLVED CLARIFICATION ENTRY XX SCH (00:01)
--- NOTE | 2020-12-06 18:09 | RO ---
OPERATIVE NOTE DATE OF OPERATION: 12/04/2020 PREOPERATIVE DIAGNOSIS: History of perforated appendicitis with periappendiceal abscess. POSTOPERATIVE DIAGNOSIS: History of perforated appendicitis with periappendiceal abscess. PROCEDURE: Laparoscopic appendectomy with drainage of periappendiceal abscess. SURGEON: Gray Daniels M.D. ANESTHESIA: General endotracheal anesthesia. ESTIMATED BLOOD LOSS: Minimal. FLUIDS: Crystalloid. BRIEF PROCEDURE SUMMARY: The patient was brought to the operating room and was given general anesthesia. After adequate anesthesia and preoperative antibiotics were given, the patient was prepped and draped in the usual sterile fashion. Next, a supraumbilical incision was made with the skin knife. Blunt dissection was carried down to the fascia and then the Veress needle was placed into the abdominal cavity and insufflated to 15 mm of pressure. A 12-mm trocar was placed at this time. Under direct visualization, the suprapubic and the left lower quadrant 5-mm trocars were placed. The patient was placed in Trendelenburg, left side down. There were numerous adhesions in the right lower quadrant. There was omentum up against the appendix area and cecum on the side, which was taken down with the Harmonic scalpel. Eventually, after visualizing this area, the small bowel was tightly adhered to the pelvic sidewall and thus I took this down with the Harmonic scalpel. Once I was able to mobilize the distal ileum/ileocecal valve area, the cecum was also visualized better at this point and I was able to mobilize this further. Once I was mobilizing this area, the percutaneous drain that had been previously placed was visualized going into the abscess cavity. There were some fecaliths within this that I was able to suction out. There was a great deal of granulation tissue within this cavity itself, and after visualizing this and mobilizing some of the tissue, I was able to get underneath the appendix next to the cecal wall. Then, following the appendix out, I took the mesentery with the Harmonic scalpel. Essentially, it appeared that the mid portion of the appendix was no longer there, essentially it had ruptured in this area and then the distal portion of the appendix was present with significant fibrosis to it. Eventually, I was able to get all of this removed, but it had shrunken and fibrosed enough that there was not much to the distal portion of the appendix itself. In any case, some of the granulation tissue I was able to remove with this as well with the Harmonic scalpel. But, given this area was opened up nicely and there was no further abscess appreciated, no purulent discharge, the appendix was transected using a DYLAN stapler, placed in an EndoCatch bag, and brought out through the umbilicus. The right lower quadrant was copiously irrigated until clear and overall appeared to be adequately removed in general. To be on the safe side, given her problem with the abscesses previously, I left a 19 Lobito drain in the area of the dissection, brought this out through one of the trocar sites, and then all trocars were removed under direct visualization. Then, 0-Vicryl was used to close the fascia at the umbilicus. All incisions were closed with 4-0 Vicryl. Steri-Strips and a dry sterile dressing were applied. The patient was awakened, extubated, and brought to the recovery room awake, alert, and hemodynamically stable. Sponge and needle counts were correct x2.
== END 2020-12-04 15:10 | disposition home or self-care (01) ==
LOC: M SDC 09:30
PROVIDERS: ATTEND Surgery
DX: K35.33 Acute appendicitis with perforation, localized peritonitis, and gangrene, with abscess (principal); K38.1 Appendicular concretions; I10 Essential (primary) hypertension; E03.9 Hypothyroidism, unspecified; F41.9 Anxiety disorder, unspecified; Z98.84 Bariatric surgery status; Z79.899 Other long term (current) drug therapy; Z79.2 Long term (current) use of antibiotics
CPT/HCPCS: 44970; 81025; 88304; J0131; J1100; J1170; J1885; J1956; J2250; J2405; J2765; J3010

== ENCOUNTER → 2020-12-29 | Outpatient (CLI) | payer BC ==
[~2020-12-29] MED LIST changes: -LR 1,000 ML IV ONE; -LevoFLOXacin IV 500 MG in IV 1 EA IV ONE
[2020-12-29 10:27] LABS: HEMOGLOBIN A1c 5.4 %
[2020-12-29 10:34] LABS: ALBUMIN 3.7 GM/DL (3.2-5.2); ALT/SGPT 30 U/L (12-78); BILIRUBIN,TOTAL 0.6 MG/DL (0.2-1.0); BLOOD UREA NITROGEN 14 MG/DL (7-18); CALCIUM LEVEL 9.1 MG/DL (8.5-10.1); CARBON DIOXIDE LEVEL 28 MEQ/L (21-32); CHLORIDE LEVEL 108 MEQ/L (98-107); CHOLESTEROL LEVEL 248 MG/DL (<200); CHOLESTEROL RISK RATIO 5.391 (<5); FREE T4 0.75 NG/DL (0.76-1.46); GLOMERULAR FILTRATION RATE > 60.0 (>60); GLUCOSE, FASTING 86 MG/DL (70-100); HDL CHOLESTEROL 46 MG/DL (>40); LDL CHOLESTEROL 149 MG/DL (<100); NON-HDL-C 202 MG/DL; POTASSIUM SERUM 4.1 MEQ/L (3.5-5.1); SODIUM LEVEL 142 MEQ/L (136-145); TOTAL PROTEIN 7.4 GM/DL (6.4-8.2); TRIGLYCERIDES LEVEL 265 MG/DL (<150)
[2020-12-31 10:38] LABS: TOTAL 25(OH) VITAMIN D 31.6 NG/ML (30.0-100.0)
[2020-12-31 10:42] LABS: VITAMIN B12 LEVEL 406 PG/ML (247-911)
== END ==
LOC: M LAB 09:09
PROVIDERS: ATTEND Family Medicine
DX: E78.5 Hyperlipidemia, unspecified (principal)

== ENCOUNTER → 2021-01-01 | Outpatient (REF) | payer BC | LOC: M LAB REF 17:05 | PROVIDERS: ATTEND Family Medicine | DX: R30.0 Dysuria (principal) ==

== ENCOUNTER → 2021-04-01 | Outpatient (REF) | payer BC ==
[2021-04-01 17:40] LABS: FREE T4 0.77 NG/DL (0.76-1.46); THYROID STIMULATING HORMONE 2.42 uIU/ML (0.358-3.740)
== END ==
LOC: M LABWUC 15:30
PROVIDERS: ATTEND Family Medicine
DX: E03.9 Hypothyroidism, unspecified (principal)

== ENCOUNTER → 2021-09-10 | Outpatient (REF) | payer OTHER ==
[~2021-09-10] MED LIST changes: -OMEP-221 PO; +OMEP40CA5 PO
[2021-09-10 18:02] LABS: APPEARANCE, URINE HAZY (CLEAR); BACTERIA, URINE AUTO NEGATIVE (NEGATIVE); BILIRUBIN, URINE AUTO NEGATIVE (NEGATIVE); BLOOD, URINE BLOOD NEGATIVE (NEGATIVE); COLOR, URINE YELLOW (YELLOW); GLUCOSE, URINE (UA) AUTO NEGATIVE (NEGATIVE); KETONE, URINE AUTO TRACE mg/dL (NEGATIVE); LEUKOCYTE ESTERASE, URINE AUTO 2+ (NEGATIVE); MUCUS, URINE SMALL (NEGATIVE); NITRITE, URINE AUTO NEGATIVE (NEGATIVE); PROTEIN, URINE AUTO NEGATIVE (NEGATIVE); RBC, URINE AUTO 3 /HPF (0-3); SPECIFIC GRAVITY URINE AUTO 1.029 (1.002-1.035); SQUAMOUS EPITHELIAL CELL UR AU 14 /HPF (0-6); WBC, URINE AUTO 2 /HPF (0-3)
== END ==
LOC: M LAB REF 17:03
PROVIDERS: ATTEND Nurse Practitioner Adult Health
DX: N76.0 Acute vaginitis (principal)

== ENCOUNTER → 2021-09-12 | Outpatient (REF) | payer OTHER | LOC: M LAB REF 17:04 | PROVIDERS: ATTEND Nurse Practitioner Adult Health | DX: N76.0 Acute vaginitis (principal) ==

== ENCOUNTER → 2022-02-20 | Outpatient (REF) | payer OTHER ==
[~2022-02-20] MED LIST changes: -LABE100T4 PO; +LABE100T6 PO
[2022-02-20 18:36] LABS: ALBUMIN 4.1 GM/DL (3.2-5.2); ALT/SGPT 27 U/L (12-78); BLOOD UREA NITROGEN 16 MG/DL (7-18); CALCIUM LEVEL 9.3 MG/DL (8.5-10.1); CARBON DIOXIDE LEVEL 26 MEQ/L (21-32); CHLORIDE LEVEL 105 MEQ/L (98-107); CHOLESTEROL LEVEL 243 MG/DL (<200); CREATININE FOR GFR 0.66 MG/DL (0.55-1.30); GLOMERULAR FILTRATION RATE > 60.0 (>60); GLUCOSE, FASTING 89 MG/DL (70-100); HDL CHOLESTEROL 50 MG/DL (>40); LDL CHOLESTEROL 165 MG/DL (<100); NON-HDL-C 193 MG/DL; POTASSIUM SERUM 4.8 MEQ/L (3.5-5.1); SODIUM LEVEL 135 MEQ/L (136-145); TOTAL PROTEIN 7.7 GM/DL (6.4-8.2); TRIGLYCERIDES LEVEL 141 MG/DL (<150)
[2022-02-20 18:46] LABS: MALB URINE SIEMENS 11.9 MG/L; MAU/CREAT RATIO 5.8 MCG/MG (0.0-30.0)
[2022-02-20 18:49] LABS: HEMOGLOBIN A1c 5.7 %
== END ==
LOC: M LAB REF 17:09
PROVIDERS: ATTEND Family Medicine
DX: E11.9 Type 2 diabetes mellitus without complications (principal); E78.2 Mixed hyperlipidemia

== ENCOUNTER → 2022-04-07 | Outpatient (CLI) | payer OTHER, MEDICAID | LOC: M PLALAB 15:38 | PROVIDERS: ATTEND Advanced Practice Midwife | DX: O02.1 Missed abortion (principal) ==

== ENCOUNTER → 2022-04-15 | Outpatient (CLI) | payer OTHER, MEDICAID | LOC: M PLALAB 13:52 | PROVIDERS: ATTEND Advanced Practice Midwife | DX: O03.9 Complete or unspecified spontaneous abortion without complication (principal) ==

== ENCOUNTER → 2022-04-22 | Outpatient (REF) | payer OTHER, MEDICAID | LOC: M LAB REF 17:03 | PROVIDERS: ATTEND Advanced Practice Midwife | DX: O03.9 Complete or unspecified spontaneous abortion without complication (principal) ==

== ENCOUNTER → 2022-04-30 | Outpatient (CLI) | payer OTHER, MEDICAID | LOC: M PLALAB 11:55 | PROVIDERS: ATTEND Advanced Practice Midwife | DX: O03.9 Complete or unspecified spontaneous abortion without complication (principal) ==

== ENCOUNTER → 2022-05-13 | Outpatient (REF) | payer OTHER, MEDICAID ==
[2022-05-13 16:55] LABS: HCG, SERUM QUALITATIVE POSITIVE (NEGATIVE)
[2022-05-14 11:15] LABS: HCG, SERUM QUANTITATIVE 60.8 MIU/ML (<4.2)
== END ==
LOC: M SFHCWAGY 16:05
PROVIDERS: ATTEND Advanced Practice Midwife
DX: O03.9 Complete or unspecified spontaneous abortion without complication (principal)

== ENCOUNTER → 2022-06-12 | Outpatient (REF) | payer OTHER, MEDICAID | LOC: M LAB REF 16:21 | PROVIDERS: ATTEND Advanced Practice Midwife | DX: O03.9 Complete or unspecified spontaneous abortion without complication (principal) ==

== ENCOUNTER → 2022-06-12 | Outpatient (REF) | payer OTHER, MEDICAID ==
[2022-06-12 17:15] LABS: ALKALINE PHOSPHATASE 55 U/L (46-116); ALT/SGPT 21 U/L (7.0-40); AST/SGOT 26 U/L (<34); BILIRUBIN,TOTAL 0.9 MG/DL (0.3-1.2); BLOOD UREA NITROGEN 11 MG/DL (9-23); CARBON DIOXIDE LEVEL 30 MMOL/L (20-31); CHLORIDE LEVEL 104 MMOL/L (98-107); CHOLESTEROL LEVEL 248 MG/DL (<200); CHOLESTEROL RISK RATIO 4.72 (<5); GLOMERULAR FILTRATION RATE > 60.0 (>60); GLUCOSE, FASTING 82 MG/DL (60-100); HDL CHOLESTEROL 52.5 MG/DL (>40); IRON (FE) 97 UG/DL (50-170); LDL CHOLESTEROL 160.1 MG/DL (<100); NON-HDL-C 196 MG/DL; POTASSIUM SERUM 4.2 MMOL/L (3.5-5.1); SODIUM LEVEL 141 MMOL/L (136-145); TOTAL PROTEIN 7.2 G/DL (5.7-8.2); TRIGLYCERIDES LEVEL 177 MG/DL (<150)
[2022-06-12 17:18] LABS: VITAMIN B12 LEVEL 370 PG/ML (211-911)
[2022-06-12 17:19] LABS: FREE T4 0.93 NG/DL (0.89-1.76); THYROID STIMULATING HORMONE 2.731 uIU/ML (0.55-4.78)
[2022-06-12 17:20] LABS: FERRITIN 32.6 NG/ML (7.3-270.7)
[2022-06-12 17:54] LABS: HEMOGLOBIN A1c 5.2 % (4.0-6.0)
== END ==
LOC: M LAB REF 16:23
PROVIDERS: ATTEND Family Medicine
DX: Z98.84 Bariatric surgery status (principal); E11.9 Type 2 diabetes mellitus without complications; D51.9 Vitamin B12 deficiency anemia, unspecified; E03.9 Hypothyroidism, unspecified; E55.9 Vitamin D deficiency, unspecified

== ENCOUNTER 2022-07-08 13:12 | Emergency (ER) | payer MEDICAID, OTHER ==
[~2022-07-08] VITALS: Ht 160 cm; Wt 77.2 kg
[2022-07-08 14:28] LABS: BASO % 0.2 % (0.0-1.0); EOS # 0.2 10^3/uL (0.0-0.5); EOS % 1.9 % (0.0-3.0); HEMATOCRIT 39.4 % (36.0-47.0); HEMOGLOBIN 12.9 g/dl (12.0-15.5); LYMPH # 2.3 10^3/uL (1.5-5.0); LYMPH % 18.1 % (24.0-44.0); MEAN CORPUSCULAR HEMOGLOBIN 28.8 pg (27.0-33.0); MEAN CORPUSCULAR HGB CONC 32.7 g/dl (32.0-36.5); MEAN CORPUSCULAR VOLUME 87.9 fl (80.0-96.0); MONO # 0.7 10^3/uL (0.0-0.8); MONO % 5.2 % (2.0-8.0); NEUTROPHILS # 9.5 10^3/uL (1.5-8.5); NEUTROPHILS % 74.3 % (36.0-66.0); PLATELET COUNT, AUTOMATED 296 10^3/uL (150-450); RED BLOOD COUNT 4.48 10^6/uL (4.00-5.40); WHITE BLOOD COUNT 12.8 10^3/uL (4.0-10.0)
[2022-07-08 14:50] LABS: BLOOD UREA NITROGEN 12 MG/DL (9-23); CALCIUM LEVEL 8.8 MG/DL (8.5-10.1); CARBON DIOXIDE LEVEL 28 MMOL/L (20-31); CHLORIDE LEVEL 104 MMOL/L (98-107); CREATININE FOR GFR 0.67 MG/DL (0.55-1.30); GLOMERULAR FILTRATION RATE > 60.0 (>60); GLUCOSE, FASTING 99 MG/DL (60-100); SODIUM LEVEL 138 MMOL/L (136-145)
[2022-07-08] MEDS ORDERED: PYRI1TAB5 PO (16:46)
[2022-07-08] MEDS ORDERED: CEPH500C PO (16:46)
[2022-07-08 17:05] VITALS: BP 120/62
== END 2022-07-08 17:47 | disposition home or self-care (01) ==
LOC: M ED 15:28
DX: N30.90 Cystitis, unspecified without hematuria (principal); B96.20 Unspecified Escherichia coli [E. coli] as the cause of diseases classified elsewhere; R93.89 Abnormal findings on diagnostic imaging of other specified body structures; R10.2 Pelvic and perineal pain; E11.9 Type 2 diabetes mellitus without complications; I10 Essential (primary) hypertension; E78.5 Hyperlipidemia, unspecified; F41.9 Anxiety disorder, unspecified; Z79.899 Other long term (current) drug therapy

== ENCOUNTER → 2022-12-17 | Outpatient (REF) | payer OTHER ==
[~2022-12-17] MED LIST changes: +CEPH500C PO; +PYRI1TAB5 PO
== END ==
LOC: M LAB REF 16:17
PROVIDERS: ATTEND Physician Assistant
DX: R30.0 Dysuria (principal)

== ENCOUNTER → 2023-01-26 | Outpatient (CLI) | payer OTHER ==
[2023-01-26 09:29] LABS: BASO % 0.1 % (0.0-1.0); EOS # 0.3 10^3/uL (0.0-0.5); HEMATOCRIT 38.5 % (36.0-47.0); HEMOGLOBIN 12.7 g/dl (12.0-15.5); LYMPH # 2.8 10^3/uL (1.5-5.0); LYMPH % 33.8 % (24.0-44.0); MEAN CORPUSCULAR HEMOGLOBIN 28.7 pg (27.0-33.0); MEAN CORPUSCULAR VOLUME 86.9 fl (80.0-96.0); MONO # 0.6 10^3/uL (0.0-0.8); MONO % 6.7 % (2.0-8.0); NEUTROPHILS # 4.6 10^3/uL (1.5-8.5); NEUTROPHILS % 56.2 % (36.0-66.0); PLATELET COUNT, AUTOMATED 290 10^3/uL (150-450); RED BLOOD COUNT 4.43 10^6/uL (4.00-5.40); WHITE BLOOD COUNT 8.3 10^3/uL (4.0-10.0)
[2023-01-26 10:07] LABS: HEMOGLOBIN A1c 5.2 % (4.0-6.0)
[2023-01-26 10:12] LABS: ALBUMIN 3.6 G/DL (3.2-5.2); ALKALINE PHOSPHATASE 49 U/L (46-116); ALT/SGPT 27 U/L (7.0-40); AST/SGOT 12 U/L (<34); BILIRUBIN,TOTAL 0.8 MG/DL (0.3-1.2); BLOOD UREA NITROGEN 11 MG/DL (9-23); CARBON DIOXIDE LEVEL 27 MMOL/L (20-31); CHLORIDE LEVEL 106 MMOL/L (98-107); CHOLESTEROL LEVEL 193 MG/DL (<200); CHOLESTEROL RISK RATIO 4.14 (<5); CREATININE FOR GFR 0.65 MG/DL (0.55-1.30); GLOMERULAR FILTRATION RATE > 60.0 (>60); GLUCOSE, FASTING 91 MG/DL (60-100); HDL CHOLESTEROL 46.6 MG/DL (>40); LDL CHOLESTEROL 108.4 MG/DL (<100); NON-HDL-C 146.4 MG/DL; SODIUM LEVEL 140 MMOL/L (136-145); TOTAL PROTEIN 6.7 G/DL (5.7-8.2); TRIGLYCERIDES LEVEL 190 MG/DL (<150)
[2023-01-26 10:13] LABS: THYROID STIMULATING HORMONE 3.957 uIU/ML (0.55-4.78); TOTAL 25(OH) VITAMIN D 26.8 NG/ML (20.0-100.0)
[2023-01-26 10:14] LABS: FOLATE 21.77 NG/ML (>5.4); VITAMIN B12 LEVEL 457 PG/ML (211-911)
[2023-01-26 10:15] LABS: FREE T4 0.87 NG/DL (0.89-1.76)
== END ==
LOC: M WUC 08:24
PROVIDERS: ATTEND Nurse Practitioner Adult Health
DX: E11.9 Type 2 diabetes mellitus without complications (principal); E03.9 Hypothyroidism, unspecified; E55.9 Vitamin D deficiency, unspecified; D51.9 Vitamin B12 deficiency anemia, unspecified

== ENCOUNTER → 2023-04-28 | Outpatient (CLI) | payer OTHER, MEDICAID | LOC: M WHC 08:31 | PROVIDERS: ATTEND Advanced Practice Midwife | DX: Z34.81 Encounter for supervision of other normal pregnancy, first trimester (principal); Z3A.13 13 weeks gestation of pregnancy ==

== ENCOUNTER 2023-05-10 04:17 | Emergency (ER) | payer OTHER, MEDICAID ==
[~2023-05-10] VITALS: Ht 160 cm; Wt 80.8 kg
[2023-05-10 04:19] VITALS: BP 121/67; TEMP 98.6; O2SAT 99
== END 2023-05-10 04:45 | disposition left against medical advice (07) ==
LOC: M ED 04:17
DX: Z53.21 Procedure and treatment not carried out due to patient leaving prior to being seen by health care provider (principal)

== ENCOUNTER → 2023-06-12 | Outpatient (CLI) | payer MEDICAID, OTHER | LOC: M WHC 13:32 | PROVIDERS: ATTEND Specialist | DX: Z34.82 Encounter for supervision of other normal pregnancy, second trimester (principal) ==

== ENCOUNTER → 2023-06-29 | Outpatient (CLI) | payer OTHER | LOC: M PLALAB 11:30 | PROVIDERS: ATTEND Obstetrics & Gynecology | DX: O99.843 Bariatric surgery status complicating pregnancy, third trimester (principal) ==

== ENCOUNTER → 2023-07-21 | Outpatient (CLI) | payer OTHER | LOC: M RAD 09:30 | PROVIDERS: ATTEND Obstetrics & Gynecology | DX: O99.843 Bariatric surgery status complicating pregnancy, third trimester (principal) ==

== ENCOUNTER → 2023-08-14 | Outpatient (CLI) | payer OTHER, MEDICAID | LOC: M WHC 08:00 | PROVIDERS: ATTEND Specialist | DX: Z34.83 Encounter for supervision of other normal pregnancy, third trimester (principal) ==

== ENCOUNTER → 2023-08-25 | Outpatient (REF) | payer OTHER, MEDICAID | LOC: M SFHCWAGY 16:57 | PROVIDERS: ATTEND Specialist | DX: Z34.83 Encounter for supervision of other normal pregnancy, third trimester (principal) ==

== ENCOUNTER → 2023-09-03 | Outpatient (REF) | payer OTHER, MEDICAID ==
[2023-09-03 19:02] LABS: HEMATOCRIT 35.1 % (36.0-47.0); HEMOGLOBIN 11.3 g/dl (12.0-15.5); MEAN CORPUSCULAR HEMOGLOBIN 26.2 pg (27.0-33.0); MEAN CORPUSCULAR HGB CONC 32.2 g/dl (32.0-36.5); MEAN CORPUSCULAR VOLUME 81.4 fl (80.0-96.0); PLATELET COUNT, AUTOMATED 295 10^3/uL (150-450); RED BLOOD COUNT 4.31 10^6/uL (4.00-5.40); WHITE BLOOD COUNT 10.7 10^3/uL (4.0-10.0)
[2023-09-03 19:31] LABS: CREATININE,RANDOM URINE 67.5 MG/DL
[2023-09-03 19:33] LABS: URIC ACID 4.1 MG/DL (3.1-7.8)
[2023-09-03 19:35] LABS: LDH LACTATE DEHYDROGENASE 250 U/L (120-246)
[2023-09-03 19:36] LABS: ALT/SGPT < 9 U/L (7.0-40); AST/SGOT 13 U/L (<34); BILIRUBIN,TOTAL 0.7 MG/DL (0.3-1.2); CREATININE FOR GFR 0.49 MG/DL (0.55-1.30); GLOMERULAR FILTRATION RATE > 60.0 (>60)
== END ==
LOC: M SFHCWAGY 17:10
PROVIDERS: ATTEND Specialist
DX: Z34.03 Encounter for supervision of normal first pregnancy, third trimester (principal)

== ENCOUNTER 2023-09-07 12:43 | Inpatient (IN) | payer OTHER, MEDICAID ==
[2023-09-07] VITALS (7 sets, daily range): BP systolic 119–168; BP diastolic 62–98
[~2023-09-07] VITALS: Ht 160.7 cm; Wt 92.8 kg
[2023-09-07] MEDS ORDERED: OMEP-173 PO (13:19)
[2023-09-07] MEDS ORDERED: HOME MED LIST COMPLETE! XX SCH (13:35)
[2023-09-07 15:30] LABS: HEMATOCRIT 32.8 % (36.0-47.0); HEMOGLOBIN 10.3 g/dl (12.0-15.5); MEAN CORPUSCULAR HEMOGLOBIN 25.2 pg (27.0-33.0); MEAN CORPUSCULAR HGB CONC 31.4 g/dl (32.0-36.5); MEAN CORPUSCULAR VOLUME 80.4 fl (80.0-96.0); PLATELET COUNT, AUTOMATED 289 10^3/uL (150-450); RED BLOOD COUNT 4.08 10^6/uL (4.00-5.40); WHITE BLOOD COUNT 9.4 10^3/uL (4.0-10.0)
[2023-09-07] MEDS ORDERED: TRANEXAMIC ACID INJection 1,000 MG in NS 100 ML IV PRN (16:55)
[2023-09-07] MEDS: LACTATED RINGER'S 1000 ML IV STA (16:55)
[2023-09-07] MEDS ORDERED: CARBOPROST TROMETHAMINE 250 MCG/ML AMP IM PRN (16:55)
[2023-09-07] MEDS ORDERED: OXYTOCIN DRIP 30 UNITS in IV 1 EA IV PRN (16:55)
[2023-09-07] MEDS ORDERED: LIDOCAINE 1% MDV 20ML VIAL INFIL PRN (16:55)
[2023-09-07] MEDS: miSOPROStol 50MCG 1/2 TABLET PO SCH (17:26)
[2023-09-07] MEDS: SLF 3 ML SYR IV PRN (17:27)
[2023-09-07 18:27] LABS: LDH LACTATE DEHYDROGENASE 491 U/L (120-246)
[2023-09-07 18:31] LABS: ALT/SGPT 10 U/L (7.0-40); AST/SGOT 37 U/L (<34); BILIRUBIN,TOTAL 0.5 MG/DL (0.3-1.2); CREATININE FOR GFR 0.53 MG/DL (0.55-1.30); GLOMERULAR FILTRATION RATE > 60.0 (>60); URIC ACID 4.3 MG/DL (3.1-7.8)
[2023-09-07 19:05] LABS: CREATININE,RANDOM URINE 41.4 MG/DL
[2023-09-07 19:12] LABS: TOTAL PROTEIN,RANDOM URINE < 6.0 MG/DL (0.0-14.0)
[2023-09-07] MEDS: SLF 3 ML SYR IV SCH (22:00)
[2023-09-08] VITALS (41 sets, daily range): BP systolic 105–200; BP diastolic 56–95
[2023-09-08] MEDS: LR 1,000 ML IV SCH (11:57)
[2023-09-08] MEDS: OXYTOCIN DRIP 30 UNITS in IV 1 EA IV SCH (11:57)
[2023-09-08] MEDS: ESCITALOPRAM OXALATE 10 MG TAB (LEXAPRO) PO SCH (14:47)
[2023-09-08] MEDS ORDERED: ONDANSETRON 4MG 2ML VIAL IV PRN (16:55)
[2023-09-08] MEDS ORDERED: ePHEDrine SULFATE 25 MG/5 ML(5MG/ML) SYRINGE IVP PRN (16:55)
[2023-09-08] MEDS ORDERED: LR 500 ML IV PRN (16:55)
[2023-09-08] MEDS ORDERED: diphenhydrAMINE 50MG/ML VIAL IV PRN (16:55)
[2023-09-08] MEDS ORDERED: EPIDURAL/PCA KEYS XX PRN (16:55)
[2023-09-08] MEDS ORDERED: NALOXONE INJ 0.4MG/1ML VIAL IV PRN (16:55)
[2023-09-08] MEDS: FENTANYL/ROPIVACAINE/NACL BAG 100 ML EPIDURAL SCH (17:30)
[2023-09-08] MEDS: ACETAMINOPHEN 500 MG TAB PO ONE (19:55)
[2023-09-09 00:09] VITALS: BP 141/75
[2023-09-09] MEDS ORDERED: DOCUSATE SODIUM 100MG CAPSULE PO PRN (00:15)
[2023-09-09] MEDS ORDERED: DIBUCAINE 1% OINTMENT 30GM TOP PRN (00:15)
[2023-09-09] MEDS ORDERED: RHOGAM 300MCG (1500IU) INJ IM SCH (00:15)
[2023-09-09] MEDS: OXYTOCIN DRIP 30 UNITS in IV 1 EA IV SCH (00:15)
[2023-09-09] MEDS ORDERED: ANUSOL HC CREAM 30GM TOP PRN (00:15)
[2023-09-09] MEDS ORDERED: MOM 30ML SUSPENSION UDC PO PRN (00:15)
[2023-09-09] MEDS ORDERED: CALCIUM CARBONATE 500 MG CHEW U/D PO PRN (00:15)
[2023-09-09] MEDS ORDERED: ACETAMINOPHEN TAB 650MG DOSE (2X325MG) PO PRN (00:15)
[2023-09-09 00:24] VITALS: BP 142/76
[2023-09-09 02:10] VITALS: BP 123/62; O2SAT 97
[2023-09-09] MEDS: PRENATAL VITAMINS CHEWABLE TABLET PO SCH (08:26)
[2023-09-09] MEDS: ACETAMINOPHEN 500 MG TAB PO PRN (08:27)
[2023-09-09 08:30] VITALS: BP 123/62; TEMP 97.7; O2SAT 97
[2023-09-09 18:00] VITALS: BP 115/58; O2SAT 98
[2023-09-10 02:00] VITALS: BP 119/75; O2SAT 100
[2023-09-10 05:55] VITALS: BP 115/71; O2SAT 99
[2023-09-10 17:39] VITALS: BP 143/60; O2SAT 96
[2023-09-11] MEDS ORDERED: MEASLES,MUMPS,RUBELLA VACCINE INJ (MMR-II) SC.IMMUN ONE (09:00)
== END 2023-09-10 18:45 | disposition home or self-care (01) | DRG 807 ==
LOC: M LDI 12:43 → M OBS 09-09 02:05
PROVIDERS: ADMIT Advanced Practice Midwife; ATTEND Obstetrics & Gynecology
PROC: 3E0P7GC Introduction of Other Therapeutic Substance into Female Reproductive, Via Natural or Artificial Opening (ICD-10-PCS; 2023-09-07)
PROC: 10E0XZZ Delivery of Products of Conception, External Approach (ICD-10-PCS; principal; 2023-09-08)
DX: O13.4 Gestational [pregnancy-induced] hypertension without significant proteinuria, complicating childbirth (principal); Z37.0 Single live birth; Z3A.38 38 weeks gestation of pregnancy; O99.844 Bariatric surgery status complicating childbirth; O99.344 Other mental disorders complicating childbirth; F41.9 Anxiety disorder, unspecified; O70.1 Second degree perineal laceration during delivery; O69.81X0 Labor and delivery complicated by cord around neck, without compression, not applicable or unspecified; Z79.899 Other long term (current) drug therapy

== ENCOUNTER → 2024-01-12 | Outpatient (CLI) | payer OTHER, MEDICAID ==
[~2024-01-12] MED LIST changes: +OMEP-173 PO
[2024-01-12 10:34] LABS: BASO % 0.3 % (0.0-1.0); EOS # 0.4 10^3/uL (0.0-0.5); EOS % 6.7 % (0.0-3.0); HEMATOCRIT 38.4 % (36.0-47.0); HEMOGLOBIN 12.1 g/dl (12.0-15.5); LYMPH # 2.5 10^3/uL (1.5-5.0); LYMPH % 42.1 % (24.0-44.0); MEAN CORPUSCULAR HEMOGLOBIN 26.5 pg (27.0-33.0); MEAN CORPUSCULAR HGB CONC 31.5 g/dl (32.0-36.5); MEAN CORPUSCULAR VOLUME 84.2 fl (80.0-96.0); MONO # 0.4 10^3/uL (0.0-0.8); MONO % 7.2 % (2.0-8.0); NEUTROPHILS # 2.6 10^3/uL (1.5-8.5); NEUTROPHILS % 43.4 % (36.0-66.0); PLATELET COUNT, AUTOMATED 309 10^3/uL (150-450); RED BLOOD COUNT 4.56 10^6/uL (4.00-5.40)
[2024-01-12 10:58] LABS: HEMOGLOBIN A1c 5.7 % (4.0-6.0)
[2024-01-12 11:06] LABS: ALBUMIN 3.7 G/DL (3.2-5.2); ALKALINE PHOSPHATASE 57 U/L (46-116); ALT/SGPT 48 U/L (7.0-40); AST/SGOT 27 U/L (<34); BILIRUBIN,TOTAL 0.7 MG/DL (0.3-1.2); BLOOD UREA NITROGEN 15 MG/DL (9-23); CALCIUM LEVEL 8.9 MG/DL (8.5-10.1); CARBON DIOXIDE LEVEL 30 MMOL/L (20-31); CHLORIDE LEVEL 105 MMOL/L (98-107); CHOLESTEROL LEVEL 244 MG/DL (<200); CHOLESTEROL RISK RATIO 5.45 (<5); CREATININE FOR GFR 0.74 MG/DL (0.55-1.30); GLOMERULAR FILTRATION RATE > 60.0 (>60); GLUCOSE, FASTING 91 MG/DL (60-100); HDL CHOLESTEROL 44.7 MG/DL (>40); LDL CHOLESTEROL 141.3 MG/DL (<100); NON-HDL-C 199.3 MG/DL; POTASSIUM SERUM 4.5 MMOL/L (3.5-5.1); SODIUM LEVEL 139 MMOL/L (136-145); TOTAL PROTEIN 7.3 G/DL (5.7-8.2); TRIGLYCERIDES LEVEL 290 MG/DL (<150)
[2024-01-12 11:09] LABS: FREE T4 0.96 NG/DL (0.89-1.76); THYROID STIMULATING HORMONE 2.795 uIU/ML (0.55-4.78)
[2024-01-12 11:10] LABS: TOTAL 25(OH) VITAMIN D 27.8 NG/ML (20.0-100.0); VITAMIN B12 LEVEL 571 PG/ML (211-911)
== END ==
LOC: M PLALAB 08:19
PROVIDERS: ATTEND Nurse Practitioner Adult Health
DX: E11.9 Type 2 diabetes mellitus without complications (principal)

== ENCOUNTER → 2024-04-23 | Outpatient (REF) | payer MEDICAID | LOC: M LAB REF 19:49 | PROVIDERS: ATTEND Physician Assistant | DX: J02.9 Acute pharyngitis, unspecified (principal) ==

== ENCOUNTER → 2024-12-15 | Outpatient (REF) | payer OTHER, MEDICAID ==
[~2024-12-15] MED LIST changes: -PRAV40TA2; +PRAV40TA85
== END ==
LOC: M PLALAB 15:22
PROVIDERS: ATTEND Advanced Practice Midwife
DX: Z53.9 Procedure and treatment not carried out, unspecified reason (principal)

== ENCOUNTER → 2024-12-26 | Outpatient (REF) | payer OTHER, MEDICAID | LOC: M LAB REF 13:56 | PROVIDERS: ATTEND Student in an Organized Health Care Education/Training Program | DX: R30.0 Dysuria (principal) ==

== ENCOUNTER → 2024-12-30 | Outpatient (CLI) | payer OTHER ==
[2024-12-30 10:50] LABS: LDH LACTATE DEHYDROGENASE 145 U/L (120-246)
[2024-12-30 10:51] LABS: ALT/SGPT 12 U/L (7.0-40); AST/SGOT 14 U/L (<34); CREATININE FOR GFR 0.55 MG/DL (0.55-1.30); GLOMERULAR FILTRATION RATE > 90.0 (>60)
[2024-12-30 10:58] LABS: PLATELET COUNT, AUTOMATED 274 10^3/uL (150-450)
[2024-12-30 11:24] LABS: HIV 1&2 SCREEN NEGATIVE (NEGATIVE)
[2024-12-30 11:32] LABS: HEPATITIS C VIRUS ABY INDEX < 0.02 INDEX (<0.8)
[2024-12-30 11:41] LABS: Trichomonas vaginalis (AMP) NOT DETECTED (NEGATIVE)
[2024-12-30 12:05] LABS: GC DNA AMPLIFICATION NEGATIVE (NEGATIVE)
== END ==
LOC: M PLALAB 08:05
PROVIDERS: ATTEND Advanced Practice Midwife
DX: Z34.81 Encounter for supervision of other normal pregnancy, first trimester (principal)

== ENCOUNTER → 2025-01-18 | Outpatient (REF) | payer MEDICAID, OTHER | LOC: M PLALAB 08:18 | PROVIDERS: ATTEND Advanced Practice Midwife | DX: Z53.9 Procedure and treatment not carried out, unspecified reason (principal) ==

== ENCOUNTER → 2025-01-19 | Outpatient (REF) | payer OTHER | LOC: M SFHCWAGY 17:21 | PROVIDERS: ATTEND Advanced Practice Midwife | DX: Z34.82 Encounter for supervision of other normal pregnancy, second trimester (principal) ==

== ENCOUNTER → 2025-02-23 | Outpatient (CLI) | payer OTHER ==
[~2025-02-23] MED LIST changes: -IBUP-1022 PO; +IBUP600T42 PO
== END ==
LOC: M RAD 15:47
PROVIDERS: ATTEND Advanced Practice Midwife
DX: Z34.82 Encounter for supervision of other normal pregnancy, second trimester (principal)

== ENCOUNTER → 2025-03-19 | Outpatient (CLI) | payer OTHER ==
[2025-03-19 11:43] LABS: PLATELET COUNT, AUTOMATED 283 10^3/uL (150-450)
[2025-03-19 12:04] LABS: GLUCOSE CHALLENGE TEST 1 HOUR 95 MG/DL (LESS THAN 140)
[2025-03-19 12:34] LABS: HIV 1&2 SCREEN NEGATIVE (NEGATIVE)
[2025-03-19 12:42] LABS: HEPATITIS C VIRUS ABY INDEX < 0.02 INDEX (<0.8)
[2025-03-19 13:41] LABS: Trichomonas vaginalis (AMP) NOT DETECTED (NEGATIVE)
[2025-03-19 14:05] LABS: GC DNA AMPLIFICATION NEGATIVE (NEGATIVE)
== END ==
LOC: M LAB 09:50
PROVIDERS: ATTEND Obstetrics & Gynecology
DX: Z34.80 Encounter for supervision of other normal pregnancy, unspecified trimester (principal)
CPT/HCPCS: 36415; 82950; 85027; 86780; 86803; 86850; 86900; 86901; 87389; 87661; 87810; 87850; J2790

== ENCOUNTER → 2025-05-09 | Outpatient (REF) | payer OTHER, MEDICAID ==
[~2025-05-09] MED LIST changes: -BACTDSTA; -LABE100T6 PO; +LABE100T91 PO; +SULF-8
[2025-05-09 18:10] LABS: PLATELET COUNT, AUTOMATED 256 10^3/uL (150-450)
== END ==
LOC: M LAB REF 17:38
PROVIDERS: ATTEND Specialist
DX: Z34.82 Encounter for supervision of other normal pregnancy, second trimester (principal)

== ENCOUNTER → 2025-05-16 | Outpatient (CLI) | payer OTHER, MEDICAID | LOC: M RAD 10:08 | PROVIDERS: ATTEND Specialist | DX: Z34.83 Encounter for supervision of other normal pregnancy, third trimester (principal); Z36.4 Encounter for antenatal screening for fetal growth retardation ==

== ENCOUNTER → 2025-05-25 | Outpatient (CLI) | payer OTHER ==
[2025-05-25 19:55] LABS: PLATELET COUNT, AUTOMATED 332 10^3/uL (150-450)
[2025-05-25 20:25] LABS: LDH LACTATE DEHYDROGENASE 229 U/L (120-246)
[2025-05-25 20:26] LABS: ALT/SGPT 10 U/L (7.0-40); AST/SGOT 17 U/L (<34); CREATININE FOR GFR 0.46 MG/DL (0.55-1.30); GLOMERULAR FILTRATION RATE > 90.0 (>60)
[2025-05-25 20:38] LABS: TOTAL PROTEIN,RANDOM URINE < 6.0 MG/DL (0.0-14.0)
== END ==
LOC: M PLALAB 15:27
PROVIDERS: ATTEND Nurse Practitioner Family
DX: O13.3 Gestational [pregnancy-induced] hypertension without significant proteinuria, third trimester (principal)